=== PATIENT | male | born 1945 | race Caucasian/White ===

== ENCOUNTER 2020-10-17 06:57 | Outpatient (CLI) | payer MEDICARE ==
[2020-10-17 14:50] LABS: Bilirubin Neg (Negative); Blood, Urine 10 (Negative); Clarity Clear (Clear); Glucose, Urine (Dipstick) Normal (Negative); Ketone, Urine Negative (Negative); Leukocyte 25 (Negative); Nitrite Negative (Negative); Protein, Urine (Dipstick) 30 mg/dl (Neg-Trace); Urobilinogen Normal mg/dL (Less than 2)
[2020-10-17 15:04] LABS: Anion Gap 15 mmol/L (10-20); BUN (Urea Nitrogen) 20 mg/dL (8.4-25.7); Calc. Creatinine Clearance 0 mL/min (70-130); Calcium 9.6 mg/dL (7.8-10.44); Carbon Dioxide 24 mmol/L (23-31); Chloride 105 mmol/L (98-107); Glucose 105 mg/dL (83-110); Potassium 3.9 mmol/L (3.5-5.1); Sodium 140 mmol/L (136-145)
[2020-10-17 15:07] LABS: Hemoglobin 12.5 g/dL (14.0-18.0); Mean Corpuscular Volume 88.2 fl (80.0-100.0); Mean Platelet Volume 10.3 fl (7.4-10.4); Platelet Count 312 10x3/uL (130-400); RBC Distribution Width 12.9 % (11.5-14.5); Red Blood Cell (RBC) Count 4.17 10x6/uL (4.40-5.80); White Blood Cell (WBC) Count 4.1 10x3/uL (4.5-11.0)
[2020-10-17 15:36] LABS: PTT 56.4 sec (22.0-33.0); Prothrombin Time 41.7 sec (9.5-12.1)
[2020-10-17 15:48] LABS: INR-International Normal Ratio 4.3
[2020-10-17 16:49] LABS: RBC/HPF 0-3 HPF (0-3); WBC/HPF 0-3 HPF (0-3)
[2020-10-17 16:50] LABS: Bacteria/HPF Rare-Few HPF (None Seen); Mucous/LPF Rare LPF (<2+); Squamous Epithelial 0-3 HPF (0-3)
[2020-10-18 06:31] LABS: SARS-CoV-2 MS2 Positive; SARS-CoV-2 N Gene Negative; SARS-CoV-2 S Gene Negative; SARS-CoV-2 by NAA Not Detected (NotDetected); SARS-CoV-2 orf1ab Negative
== END 2020-10-17 06:58 | disposition home or self-care (01) ==
LOC: LABBT 06:57
PROVIDERS: ATTEND Urology
DX: Z01.818 Encounter for other preprocedural examination (principal); C67.9 Malignant neoplasm of bladder, unspecified; N50.3 Cyst of epididymis; Z20.828 Contact with and (suspected) exposure to other viral communicable diseases
CPT/HCPCS: 80048; 81001; 85027; 85610; 85730; 87086; 93005; U0003; 87635; 93010

== ENCOUNTER 2020-11-14 07:34 | Outpatient (CLI) | payer MEDICARE ==
[2020-11-14 12:52] LABS: Bilirubin Neg (Negative); Blood, Urine 150 (Negative); Clarity Clear (Clear); Glucose, Urine (Dipstick) Normal (Negative); Ketone, Urine Negative (Negative); Leukocyte 25 (Negative); Nitrite Negative (Negative); Protein, Urine (Dipstick) 30 mg/dl (Neg-Trace); Urobilinogen Normal mg/dL (Less than 2)
[2020-11-14 12:57] LABS: #Basophils 0.1 10x3/uL (0.0-0.2); #Eosinphils 0.2 10x3/uL (0.0-0.5); #Monocytes 0.6 10x3/uL (0.0-1.1); #Neutrophils 2.7 10x3/uL (1.5-8.4); %Basophils 1.1 % (0.0-2.0); %Lymphocytes 18.9 % (18.0-47.0); %Monocytes 13.2 % (0.0-10.0); %Neutrophils 61.6 % (40.0-75.0); Hemoglobin 10.9 g/dL (14.0-18.0); Mean Corpuscular Hemoglobin 29.1 PG (27.0-33.0); Mean Platelet Volume 10.3 fl (7.4-10.4); Platelet Count 309 10x3/uL (130-400); RBC Distribution Width 12.2 % (11.5-14.5); Red Blood Cell (RBC) Count 3.75 10x6/uL (4.40-5.80); White Blood Cell (WBC) Count 4.4 10x3/uL (4.5-11.0)
[2020-11-14 12:59] LABS: Anion Gap 17 mmol/L (10-20); BUN (Urea Nitrogen) 24 mg/dL (8.4-25.7); Calc. Creatinine Clearance 0 mL/min (70-130); Calcium 9.2 mg/dL (7.8-10.44); Carbon Dioxide 21 mmol/L (23-31); Chloride 104 mmol/L (98-107); Glucose 92 mg/dL (83-110); Potassium 4.2 mmol/L (3.5-5.1); Sodium 138 mmol/L (136-145)
[2020-11-14 13:14] LABS: Bacteria/HPF None Seen HPF (None Seen); RBC/HPF 0-3 HPF (0-3); Squamous Epithelial 0-3 HPF (0-3); WBC/HPF 0-3 HPF (0-3)
[2020-11-14 13:27] LABS: INR-International Normal Ratio 2.8; PTT 51.2 sec (22.0-33.0); Prothrombin Time 27.8 sec (9.5-12.1)
[2020-11-14 18:06] LABS: SARS-CoV-2 MS2 Positive; SARS-CoV-2 N Gene Negative; SARS-CoV-2 S Gene Negative; SARS-CoV-2 by NAA Not Detected (NotDetected); SARS-CoV-2 orf1ab Negative
== END 2020-11-14 07:35 | disposition home or self-care (01) ==
LOC: LABBT 07:34
PROVIDERS: ATTEND Urology
DX: Z01.818 Encounter for other preprocedural examination (principal); C67.9 Malignant neoplasm of bladder, unspecified; N50.3 Cyst of epididymis; Z20.822 Contact with and (suspected) exposure to COVID-19
CPT/HCPCS: 80048; 81001; 85025; 85610; 85730; 87086; 93005; U0003; 87635; 93010

== ENCOUNTER 2020-11-17 05:51 | Day surgery (SDC) | payer MEDICARE ==
[2020-11-16 11:15] VITALS: BMI 21.9
[2020-11-17 06:42] LABS: INR-International Normal Ratio 2.3; Prothrombin Time 25.8 sec (12.0-14.7)
[2020-11-17] MEDS ORDERED: Levofloxacin 500 mg/D5W 100 ml Premix Bag ONE (06:58)
[2020-11-17] MEDS ORDERED: B & O ONE (07:26)
[2020-11-17] MEDS ORDERED: Iothalamate Meglumine 60% 50 ML VIAL FS ONE (07:26)
[2020-11-17] MEDS ORDERED: Fentanyl 100 MCG/2 ML VIAL ONE (07:39)
[2020-11-17] MEDS ORDERED: Ondansetron PF 4 MG/2 ML Vial ONE ×2 (07:41→11:56)
[2020-11-17] MEDS ORDERED: Dexamethasone 4 mg/ml Vial ONE (07:41)
--- NOTE | 2020-11-17 09:21 | OP ---
DATE OF PROCEDURE: 11/17/2020 SERVICE: Urology. PREOPERATIVE DIAGNOSIS: History of bladder cancer with abnormal FISH cytology. POSTOPERATIVE DIAGNOSIS: History of bladder cancer with abnormal fish cytology. PROCEDURE PERFORMED: Cystoscopy, bladder biopsy, and fulguration of area between 2 to 5 cm. INDICATION FOR PROCEDURE: Mr. Iglesias is a 75-year-old white male with history of high-grade urothelial carcinoma. He was undergoing routine surveillance, was noted to have red patches in the bladder. At that time, it was not entirely sure if these red areas were consistent with malignancy, so a FISH cytology was obtained and this came back abnormal and concerning for cancer. Therefore, he is now being brought to the operating room for biopsy of these red areas. Risks and benefits of the surgery have been discussed and he has agreed to proceed forward. Of note, the patient is taking Coumadin and Plavix. He was okay to stop his Plavix, but was recommended to do a Lovenox bridge which the patient refused. As such, we are continuing with his bladder biopsies while the patient is still on Coumadin. DESCRIPTION OF PROCEDURE: After identification of armband and verification of consent, patient was brought back to the operating room, where he underwent general anesthesia with LMA. He was placed in the dorsal lithotomy position and prepped and draped in usual sterile fashion. After appropriate time-out, a lubricated 22-Malagasy rigid cystoscope was introduced per urethra into the bladder. Full cystoscopy was performed, which demonstrated a 2 primary red patches; one directly posterior and a larger one to the right posterior bladder. The larger area measured approximately 3 cm and the smaller area probably 1 cm. Both ureters were in orthotopic location. There were no obvious papillary tumors. Remainder of the bladder appeared normal. Prior biopsy sites were noted and found to be well healed. Cold cup biopsy forceps were brought in and a posterior bladder biopsy was taken from the smaller area and 3 biopsies were taken from the larger red area. After the biopsies were sent off, the Bugbee electrode was brought in and cautery was performed of the lesions until they were completely obliterated using the coag function. Upon completion, there was excellent hemostasis. Any bladder clot was irrigated out and the bladder was cycled to fill and decompress under direct vision to ensure there was no ongoing bleeding and none was encountered. Satisfied that the patient's bleeding should be minimal, the cystoscope was removed after the bladder was emptied. A B and O suppository were placed in the patient's rectum. He was taken out of positioning, awakened, taken to PACU for recovery in stable condition. COMPLICATIONS: None. ESTIMATED BLOOD LOSS: Minimal. RETAINED TUBES AND DRAINS: None. SPECIMENS: Bladder biopsies x4; one from posterior and 3 from the posterior right. DISPOSITION: Patient will be discharged home and follow up with me in approximately 1 to 2 weeks for a postop check and biopsy results. Job ID: [id number]
[2020-11-17] MEDS ORDERED: Dexamethasone 20 MG/5 ML VIAL ONE (11:56)
[2020-11-17] MEDS ORDERED: Lidocaine 1% PF 5 ML VIAL ONE (11:56)
[2020-11-17] MEDS ORDERED: PROPOFOL 200 MG/20 ML VIAL ONE (11:56)
== END 2020-11-17 10:30 | disposition home or self-care (01) ==
LOC: SDC 05:51
PROVIDERS: ATTEND Urology
PROC: 0TBB8ZZ Excision of Bladder, Via Natural or Artificial Opening Endoscopic (ICD-10-PCS; principal; 2020-11-17)
PROC: 0TBB8ZX Excision of Bladder, Via Natural or Artificial Opening Endoscopic, Diagnostic (ICD-10-PCS; 2020-11-17)
DX: C67.4 Malignant neoplasm of posterior wall of bladder (principal); N30.20 Other chronic cystitis without hematuria; I11.0 Hypertensive heart disease with heart failure; I50.9 Heart failure, unspecified; I25.10 Atherosclerotic heart disease of native coronary artery without angina pectoris; E78.5 Hyperlipidemia, unspecified; I65.29 Occlusion and stenosis of unspecified carotid artery; Z79.01 Long term (current) use of anticoagulants; Z79.02 Long term (current) use of antithrombotics/antiplatelets; Z79.899 Other long term (current) drug therapy; Z88.5 Allergy status to narcotic agent; Z95.0 Presence of cardiac pacemaker; Z95.1 Presence of aortocoronary bypass graft
CPT/HCPCS: 36415; 85610; 85730; 88305; J1100; J1956; J2405; J2704; J3010

== ENCOUNTER 2021-09-02 23:47 | Inpatient (IN) | payer MEDICARE ==
[2021-09-03] MEDS ORDERED: Ondansetron PF 4 MG/2 ML Vial IVP PRN (01:16)
[2021-09-03] MEDS ORDERED: Acetaminophen 325 MG TAB PO PRN (01:16)
[2021-09-03] MEDS ORDERED: Morphine 4 MG/ML VIAL SLOW IVP SCH (06:15)
[2021-09-03] MEDS: hydrALAZINE 20 MG/ML VIAL SLOW IVP PRN ×3 (06:38→21:25)
[2021-09-03 08:00] LABS: Hemoglobin 6.9 g/dL (14.0-18.0); Platelet Count 295 thou/uL (130-400)
[2021-09-03 10:46] LABS: #Eosinphils 0.1 thou/uL (0.0-0.7); #Lymphocytes 1.2 thou/uL (1.20-3.40); #Monocytes 0.8 thou/uL (0.11-0.59); #Neutrophils 3.3 thou/uL (1.40-6.50); %Basophils 0.6 % (0.0-1.0); %Eosinophils 1.8 % (0.0-10.0); %Lymphocytes 22.1 % (21.0-51.0); %Monocytes 14.7 % (0.0-10.0); %Neutrophils 60.8 % (42.0-75.0); Mean Corpuscular HGB CONC 34.6 g/dL (32.0-36.0); Mean Corpuscular Hemoglobin 29.2 pg (27.0-31.0); Mean Corpuscular Volume 84.4 fL (78.0-98.0); Mean Platelet Volume 7.5 fL (7.4-10.4); Platelet Count 292 thou/uL (130-400); White Blood Cell (WBC) Count 5.5 thou/uL (4.8-10.8)
[2021-09-03 10:58] LABS: Prothrombin Time 47.3 sec (12.0-14.7)
[2021-09-03 11:00] LABS: PTT 53.8 sec (22.9-36.1)
[2021-09-03 11:24] LABS: ALT (SGPT) 8 U/L (8-55); AST (SGOT) 18 U/L (5-34); Albumin 3.2 g/dL (3.4-4.8); Alkaline Phosphatase 48 U/L (40-110); Anion Gap 12 mmol/L (10-20); BUN (Urea Nitrogen) 40 mg/dL (8.4-25.7); Bilirubin, Total 0.4 mg/dL (0.2-1.2); Calc. Creatinine Clearance 32 mL/min (70-130); Calcium 8.7 mg/dL (7.8-10.44); Carbon Dioxide 22 mmol/L (23-31); Chloride 114 mmol/L (98-107); Globulin 2.1 g/dL (2.4-3.5); Glucose 97 mg/dL (83-110); Potassium 3.6 mmol/L (3.5-5.1); Protein, Total 5.3 g/dL (5.8-8.1); Sodium 144 mmol/L (136-145)
[2021-09-03] MEDS ORDERED: Phytonadione 10 MG/ML AMP SLOW IVP SCH (11:45)
[2021-09-03 16:51] LABS: SARS-CoV-2 PCR by NAA DETECTED (NotDetected)
[2021-09-03 17:24] LABS: Hemoglobin 8.5 g/dL (14.0-18.0)
[2021-09-03] MEDS: Pantoprazole 80 MG in Sodium Chloride 0.9% 100 ML IVPB SCH (21:25)
[2021-09-04 07:31] LABS: INR-International Normal Ratio 1.3; Prothrombin Time 16.5 sec (12.0-14.7)
[2021-09-04 07:32] LABS: ALT (SGPT) 7 U/L (8-55); AST (SGOT) 20 U/L (5-34); Alkaline Phosphatase 42 U/L (40-110); Anion Gap 11 mmol/L (10-20); BUN (Urea Nitrogen) 34 mg/dL (8.4-25.7); Bilirubin, Total 0.4 mg/dL (0.2-1.2); Calc. Creatinine Clearance 36 mL/min (70-130); Calcium 8.3 mg/dL (7.8-10.44); Carbon Dioxide 19 mmol/L (23-31); Chloride 114 mmol/L (98-107); Globulin 2.1 g/dL (2.4-3.5); Glucose 95 mg/dL (83-110); PTT 27.2 sec (22.9-36.1); Potassium 3.5 mmol/L (3.5-5.1); Protein, Total 5.1 g/dL (5.8-8.1); Sodium 140 mmol/L (136-145)
[2021-09-04 08:42] LABS: Hemoglobin 6.5 g/dL (14.0-18.0); Mean Corpuscular HGB CONC 34.5 g/dL (32.0-36.0); Mean Corpuscular Hemoglobin 29.2 pg (27.0-31.0); Mean Corpuscular Volume 84.8 fL (78.0-98.0); Mean Platelet Volume 7.6 fL (7.4-10.4); Platelet Count 285 thou/uL (130-400); RBC Distribution Width 14.1 % (11.5-14.5); Red Blood Cell (RBC) Count 2.23 mill/uL (4.70-6.10); White Blood Cell (WBC) Count 6.1 thou/uL (4.8-10.8)
[2021-09-04] MEDS: hydrALAZINE 20 MG/ML VIAL SLOW IVP PRN ×2 (08:54→16:16)
[2021-09-04] MEDS: Pantoprazole 80 MG in Sodium Chloride 0.9% 100 ML IVPB SCH (10:14)
[2021-09-04] MEDS ORDERED: GoLYTELY 4,000 ml Bottle PO SCH (10:30)
[2021-09-04] MEDS ORDERED: Pantoprazole 80 MG, Admixture Fee 1 EACH in Sodium Chloride 0.9% 100 ML IVPB SCH (11:15)
[2021-09-04 11:24] LABS: Band 1 % (5-11); Eosinophils 2 % (0-10); Hypochromia SLIGHT = 6-15 cells (100X) (0-5/hpf); Lymphocytes 29 % (21-51); MDiff Complete? YES; Monocytes 12 % (0-10); Neutrophil 56 % (42-75); Ovalocytes SLIGHT = 2-5 cells (100X) (0-1/hpf); Platelet Morphology Comment Appears Adequate; Polychromasia MODERATE = 3-4 cells (100X) (0-2/hpf)
[2021-09-04 12:20] LABS: Hemoglobin 6.5 g/dL (14.0-18.0)
[2021-09-04] MEDS ORDERED: Furosemide 20 MG/2 ML VIAL SLOW IVP SCH (16:30)
[2021-09-04] MEDS ORDERED: NIFEdipine XL 90 MG TAB PO SCH (16:30)
[2021-09-04] MEDS: Labetalol 100 MG TAB PO SCH (23:32)
[2021-09-05 05:36] LABS: #Eosinphils 0.2 thou/uL (0.0-0.7); #Lymphocytes 0.9 thou/uL (1.20-3.40); #Monocytes 0.6 thou/uL (0.11-0.59); #Neutrophils 3.6 thou/uL (1.40-6.50); %Basophils 0.1 % (0.0-1.0); %Eosinophils 3.3 % (0.0-10.0); %Lymphocytes 16.8 % (21.0-51.0); %Monocytes 10.9 % (0.0-10.0); %Neutrophils 68.9 % (42.0-75.0); Hemoglobin 6.9 g/dL (14.0-18.0); Mean Corpuscular HGB CONC 33.7 g/dL (32.0-36.0); Mean Corpuscular Hemoglobin 29.6 pg (27.0-31.0); Mean Corpuscular Volume 87.9 fL (78.0-98.0); Mean Platelet Volume 7.5 fL (7.4-10.4); Platelet Count 268 thou/uL (130-400); RBC Distribution Width 14.3 % (11.5-14.5); Red Blood Cell (RBC) Count 2.34 mill/uL (4.70-6.10); White Blood Cell (WBC) Count 5.2 thou/uL (4.8-10.8)
[2021-09-05 05:54] LABS: INR-International Normal Ratio 1.2; Prothrombin Time 15.6 sec (12.0-14.7)
[2021-09-05] MEDS: Labetalol 100 MG TAB PO SCH ×2 (08:31→21:23)
[2021-09-05] MEDS: NIFEdipine XL 90 MG TAB PO SCH (08:31)
[2021-09-05] MEDS ORDERED: Furosemide 40 MG/4 ML VIAL SLOW IVP SCH (09:45)
[2021-09-05] MEDS ORDERED: Lidocaine 1% PF 5 ML VIAL ONE (11:39)
[2021-09-05] MEDS ORDERED: Succinylcholine 200 MG/10 ml SYRINGE FS ONE (11:39)
[2021-09-05] MEDS ORDERED: PROPOFOL 200 MG/20 ML VIAL ONE (11:39)
[2021-09-05] MEDS ORDERED: Dexamethasone 20 MG/5 ML VIAL ONE (11:39)
[2021-09-05] MEDS ORDERED: Ondansetron PF 4 MG/2 ML Vial ONE (11:39)
[2021-09-05] MEDS ORDERED: Promethazine HCl 25 MG/ML VIAL IVPB PRN (12:31)
[2021-09-05] MEDS ORDERED: HYDROmorphone 2 MG/ML VIAL SLOW IVP PRN (12:31)
[2021-09-05] MEDS ORDERED: Promethazine HCl 25 MG/ML VIAL IM PRN (12:31)
[2021-09-05] MEDS ORDERED: Ondansetron HCl/PF 4 MG/2 ML Vial IVP PRN (12:31)
[2021-09-05] MEDS: hydrALAZINE 20 MG/ML VIAL SLOW IVP PRN (15:10)
[2021-09-05 19:38] LABS: Hemoglobin 9.1 g/dL (14.0-18.0)
[2021-09-06 05:04] LABS: Anion Gap 11 mmol/L (10-20); BUN (Urea Nitrogen) 28 mg/dL (8.4-25.7); Calc. Creatinine Clearance 31 mL/min (70-130); Calcium 8.3 mg/dL (7.8-10.44); Carbon Dioxide 24 mmol/L (23-31); Chloride 109 mmol/L (98-107); Glucose 108 mg/dL (83-110); Sodium 140 mmol/L (136-145)
[2021-09-06 05:35] LABS: Hemoglobin 7.9 g/dL (14.0-18.0); Lymphocytes 15 % (21-51); MDiff Complete? YES; Mean Corpuscular HGB CONC 34.2 g/dL (32.0-36.0); Mean Corpuscular Hemoglobin 30.4 pg (27.0-31.0); Mean Corpuscular Volume 88.8 fL (78.0-98.0); Mean Platelet Volume 7.5 fL (7.4-10.4); Monocytes 13 % (0-10); Neutrophil 72 % (42-75); Platelet Count 326 thou/uL (130-400); Platelet Morphology Comment Appears Adequate; RBC Distribution Width 14.6 % (11.5-14.5); RBC Morphology Normal; White Blood Cell (WBC) Count 5.5 thou/uL (4.8-10.8)
[2021-09-06] MEDS: NIFEdipine XL 90 MG TAB PO SCH (08:30)
[2021-09-06] MEDS: Labetalol 100 MG TAB PO SCH ×2 (09:41→20:43)
[2021-09-06 12:10] LABS: Hemoglobin 7.5 g/dL (14.0-18.0); Platelet Count 304 thou/uL (130-400)
[2021-09-06 12:26] LABS: Iron 20 ug/dL (65-175); Iron Binding Capacity, Total 259 mcg/dL (261-462)
[2021-09-06 12:42] LABS: Ferritin 36.2 ng/mL (22-322)
[2021-09-07 08:50] LABS: #Basophils 0.1 thou/uL (0.0-0.2); #Eosinphils 0.4 thou/uL (0.0-0.7); #Lymphocytes 1.2 thou/uL (1.20-3.40); #Monocytes 0.6 thou/uL (0.11-0.59); #Neutrophils 2.7 thou/uL (1.40-6.50); %Basophils 1.4 % (0.0-1.0); %Eosinophils 7.8 % (0.0-10.0); %Lymphocytes 24.4 % (21.0-51.0); %Monocytes 12.3 % (0.0-10.0); %Neutrophils 54.2 % (42.0-75.0); Hemoglobin 7.8 g/dL (14.0-18.0); Mean Corpuscular Hemoglobin 30.6 pg (27.0-31.0); Mean Platelet Volume 7.3 fL (7.4-10.4); Platelet Count 339 thou/uL (130-400); RBC Distribution Width 14.6 % (11.5-14.5); Red Blood Cell (RBC) Count 2.56 mill/uL (4.70-6.10); White Blood Cell (WBC) Count 5.1 thou/uL (4.8-10.8)
[2021-09-07] MEDS: NIFEdipine XL 90 MG TAB PO SCH (09:53)
[2021-09-07] MEDS: Labetalol 100 MG TAB PO SCH ×2 (09:58→21:01)
[2021-09-07] MEDS: Enoxaparin Sodium 60 MG/0.6 ML SYRINGE SC SCH (21:22)
[2021-09-08 04:55] LABS: INR-International Normal Ratio 1.1; PTT 36.4 sec (22.9-36.1); Prothrombin Time 14.6 sec (12.0-14.7)
[2021-09-08 05:05] LABS: Hemoglobin 8.2 g/dL (14.0-18.0); Mean Corpuscular HGB CONC 33.3 g/dL (32.0-36.0); Mean Corpuscular Hemoglobin 30.4 pg (27.0-31.0); Mean Corpuscular Volume 91.3 fL (78.0-98.0); Mean Platelet Volume 7.7 fL (7.4-10.4); Platelet Count 348 thou/uL (130-400); RBC Distribution Width 14.4 % (11.5-14.5); Red Blood Cell (RBC) Count 2.69 mill/uL (4.70-6.10); White Blood Cell (WBC) Count 4.5 thou/uL (4.8-10.8)
[2021-09-08 06:06] LABS: Band 2 % (5-11); Eosinophils 9 % (0-10); Lymphocytes 23 % (21-51); MDiff Complete? YES; Monocytes 11 % (0-10); Neutrophil 55 % (42-75)
[2021-09-08] MEDS: NIFEdipine XL 90 MG TAB PO SCH (08:33)
[2021-09-08] MEDS: Enoxaparin Sodium 60 MG/0.6 ML SYRINGE SC SCH ×2 (08:33→20:45)
[2021-09-08] MEDS: Labetalol 100 MG TAB PO SCH ×2 (08:34→20:44)
[2021-09-08] MEDS: Warfarin Sodium 5 MG TAB PO SCH (17:04)
[2021-09-09 05:36] LABS: INR-International Normal Ratio 1.1; Prothrombin Time 14.2 sec (12.0-14.7)
[2021-09-09 05:37] LABS: PTT 33.2 sec (22.9-36.1)
[2021-09-09 05:46] LABS: Hemoglobin 7.9 g/dL (14.0-18.0); Mean Corpuscular HGB CONC 32.9 g/dL (32.0-36.0); Mean Corpuscular Hemoglobin 30.1 pg (27.0-31.0); Mean Corpuscular Volume 91.6 fL (78.0-98.0); Mean Platelet Volume 8.2 fL (7.4-10.4); Platelet Count 355 thou/uL (130-400); RBC Distribution Width 14.5 % (11.5-14.5); Red Blood Cell (RBC) Count 2.62 mill/uL (4.70-6.10); White Blood Cell (WBC) Count 4.2 thou/uL (4.8-10.8)
[2021-09-09 06:42] LABS: Band 1 % (5-11); Eosinophils 8 % (0-10); Lymphocytes 31 % (21-51); MDiff Complete? YES; Monocytes 4 % (0-10); Neutrophil 56 % (42-75)
[2021-09-09] MEDS: Enoxaparin Sodium 60 MG/0.6 ML SYRINGE SC SCH ×2 (07:52→20:48)
[2021-09-09] MEDS: Labetalol 100 MG TAB PO SCH ×2 (08:00→20:48)
[2021-09-09] MEDS: NIFEdipine XL 90 MG TAB PO SCH (08:01)
[2021-09-09] MEDS ORDERED: Warfarin Sodium 2.5 MG TAB PO SCH (17:00)
[2021-09-09] MEDS: Warfarin Sodium 5 MG TAB PO SCH (17:15)
[2021-09-09] MEDS ORDERED: Calcium Carbonate 500 MG ChewTAB PO SCH (21:00)
[2021-09-10] MEDS: hydrALAZINE 20 MG/ML VIAL SLOW IVP PRN (03:55)
[2021-09-10 05:14] LABS: Hemoglobin 8.3 g/dL (14.0-18.0); INR-International Normal Ratio 1.2; Mean Corpuscular HGB CONC 32.2 g/dL (32.0-36.0); Mean Corpuscular Hemoglobin 29.4 pg (27.0-31.0); Mean Corpuscular Volume 91.5 fL (78.0-98.0); Mean Platelet Volume 7.4 fL (7.4-10.4); Platelet Count 350 thou/uL (130-400); Prothrombin Time 15.4 sec (12.0-14.7); RBC Distribution Width 14.1 % (11.5-14.5); Red Blood Cell (RBC) Count 2.81 mill/uL (4.70-6.10); White Blood Cell (WBC) Count 4.8 thou/uL (4.8-10.8)
[2021-09-10 05:15] LABS: PTT 38.9 sec (22.9-36.1)
[2021-09-10 05:25] LABS: Anion Gap 11 mmol/L (10-20); BUN (Urea Nitrogen) 18 mg/dL (8.4-25.7); Calc. Creatinine Clearance 34 mL/min (70-130); Calcium 9.3 mg/dL (7.8-10.44); Carbon Dioxide 24 mmol/L (23-31); Chloride 108 mmol/L (98-107); Glucose 93 mg/dL (83-110); Potassium 5.2 mmol/L (3.5-5.1); Sodium 138 mmol/L (136-145)
[2021-09-10 05:58] LABS: Eosinophils 4 % (0-10); Lymphocytes 24 % (21-51); MDiff Complete? YES; Monocytes 13 % (0-10); Neutrophil 59 % (42-75)
[2021-09-10] MEDS: Clopidogrel Bisulfate 75 MG TAB PO SCH (11:43)
[2021-09-10] MEDS: NIFEdipine XL 90 MG TAB PO SCH (11:44)
[2021-09-10] MEDS: Labetalol 100 MG TAB PO SCH ×2 (11:44→20:49)
[2021-09-10] MEDS: Enoxaparin Sodium 60 MG/0.6 ML SYRINGE SC SCH ×2 (11:45→20:49)
[2021-09-10] MEDS ORDERED: Warfarin Sodium 2.5 MG TAB PO SCH (17:00)
[2021-09-10] MEDS: Mag-Al Plus 1200 MG/1200 MG/120 MG/30 ML UDCUP PO PRN (18:39)
[2021-09-10] MEDS: Warfarin Sodium 5 MG TAB PO SCH (18:40)
[2021-09-11 04:57] LABS: Hemoglobin 8.2 g/dL (14.0-18.0); Mean Corpuscular HGB CONC 33.6 g/dL (32.0-36.0); Mean Corpuscular Hemoglobin 30.3 pg (27.0-31.0); Mean Corpuscular Volume 90.1 fL (78.0-98.0); Mean Platelet Volume 7.7 fL (7.4-10.4); Platelet Count 361 thou/uL (130-400); RBC Distribution Width 14.2 % (11.5-14.5); Red Blood Cell (RBC) Count 2.72 mill/uL (4.70-6.10); White Blood Cell (WBC) Count 5.2 thou/uL (4.8-10.8)
[2021-09-11 05:06] LABS: INR-International Normal Ratio 1.5; Prothrombin Time 17.9 sec (12.0-14.7)
[2021-09-11 05:07] LABS: PTT 51.7 sec (22.9-36.1)
[2021-09-11 05:14] LABS: Chloride 108 mmol/L (98-107); Potassium 4.7 mmol/L (3.5-5.1); Sodium 138 mmol/L (136-145)
[2021-09-11 05:23] LABS: BUN (Urea Nitrogen) 21 mg/dL (8.4-25.7); Calc. Creatinine Clearance 35 mL/min (70-130); Calcium 8.4 mg/dL (7.8-10.44); Carbon Dioxide 24 mmol/L (23-31); Glucose 87 mg/dL (83-110)
[2021-09-11 05:25] LABS: Anion Gap 11 mmol/L (10-20)
[2021-09-11 06:05] LABS: Band 4 % (5-11); Eosinophils 1 % (0-10); Lymphocytes 42 % (21-51); MDiff Complete? YES; Neutrophil 53 % (42-75)
[2021-09-11] MEDS: Enoxaparin Sodium 60 MG/0.6 ML SYRINGE SC SCH ×2 (09:36→20:31)
[2021-09-11] MEDS: Labetalol 100 MG TAB PO SCH ×2 (09:36→20:31)
[2021-09-11] MEDS: NIFEdipine XL 90 MG TAB PO SCH (09:37)
[2021-09-11] MEDS: Clopidogrel Bisulfate 75 MG TAB PO SCH (09:37)
[2021-09-11] MEDS: Warfarin Sodium 5 MG TAB PO SCH (16:17)
[2021-09-11] MEDS ORDERED: Warfarin Sodium 2.5 MG TAB PO SCH (17:00)
[2021-09-11] MEDS: Mag-Al Plus 1200 MG/1200 MG/120 MG/30 ML UDCUP PO PRN (17:05)
[2021-09-12 05:08] LABS: INR-International Normal Ratio 1.9; Prothrombin Time 22.2 sec (12.0-14.7)
[2021-09-12 05:09] LABS: PTT 56.4 sec (22.9-36.1)
[2021-09-12 05:13] LABS: Hemoglobin 7.9 g/dL (14.0-18.0); Mean Corpuscular HGB CONC 32.7 g/dL (32.0-36.0); Mean Corpuscular Hemoglobin 29.7 pg (27.0-31.0); Mean Corpuscular Volume 90.8 fL (78.0-98.0); Mean Platelet Volume 7.3 fL (7.4-10.4); Platelet Count 311 thou/uL (130-400); RBC Distribution Width 14.1 % (11.5-14.5); Red Blood Cell (RBC) Count 2.66 mill/uL (4.70-6.10); White Blood Cell (WBC) Count 5.1 thou/uL (4.8-10.8)
[2021-09-12 05:40] LABS: Eosinophils 5 % (0-10); Lymphocytes 23 % (21-51); MDiff Complete? YES; Monocytes 16 % (0-10); Neutrophil 56 % (42-75)
[2021-09-12] MEDS: Enoxaparin Sodium 60 MG/0.6 ML SYRINGE SC SCH ×2 (09:32→20:07)
[2021-09-12] MEDS: Labetalol 100 MG TAB PO SCH ×2 (09:32→20:07)
[2021-09-12] MEDS: NIFEdipine XL 90 MG TAB PO SCH (09:32)
[2021-09-12] MEDS: Clopidogrel Bisulfate 75 MG TAB PO SCH (09:32)
[2021-09-12] MEDS: Warfarin Sodium 5 MG TAB PO SCH (17:00)
[2021-09-13 05:44] LABS: Hemoglobin 7.8 g/dL (14.0-18.0); Mean Corpuscular HGB CONC 33.4 g/dL (32.0-36.0); Mean Corpuscular Hemoglobin 30.3 pg (27.0-31.0); Mean Corpuscular Volume 90.7 fL (78.0-98.0); Mean Platelet Volume 7.5 fL (7.4-10.4); Platelet Count 273 thou/uL (130-400); RBC Distribution Width 14.2 % (11.5-14.5); Red Blood Cell (RBC) Count 2.57 mill/uL (4.70-6.10); White Blood Cell (WBC) Count 4.9 thou/uL (4.8-10.8)
[2021-09-13 05:48] LABS: Anion Gap 13 mmol/L (10-20); BUN (Urea Nitrogen) 24 mg/dL (8.4-25.7); Calc. Creatinine Clearance 31 mL/min (70-130); Calcium 8.5 mg/dL (7.8-10.44); Carbon Dioxide 22 mmol/L (23-31); Chloride 109 mmol/L (98-107); Glucose 98 mg/dL (83-110); INR-International Normal Ratio 2.2; Potassium 4.5 mmol/L (3.5-5.1); Prothrombin Time 24.6 sec (12.0-14.7); Sodium 139 mmol/L (136-145)
[2021-09-13 06:37] LABS: Band 3 % (5-11); Eosinophils 10 % (0-10); Lymphocytes 39 % (21-51); MDiff Complete? YES; Monocytes 3 % (0-10); Neutrophil 45 % (42-75)
[2021-09-13 07:22] VITALS: TEMP 98.1
[2021-09-13] MEDS: NIFEdipine XL 90 MG TAB PO SCH (09:38)
[2021-09-13] MEDS: Enoxaparin Sodium 60 MG/0.6 ML SYRINGE SC SCH (09:38)
[2021-09-13] MEDS: Labetalol 100 MG TAB PO SCH (09:38)
[2021-09-13] MEDS: Clopidogrel Bisulfate 75 MG TAB PO SCH (09:38)
[2021-09-13 11:35] VITALS: BP 122/59
[2021-09-13] MEDS ORDERED: Warfarin Sodium 5 MG TAB PO SCH (15:00)
[2021-09-13] MEDS ORDERED: Ferrous Sulfate 325 MG TAB PO SCH (17:00)
== END 2021-09-13 16:00 | disposition home or self-care (01) | DRG 377 ==
LOC: ERS 23:47 → 2NO 09-03 00:46
PROVIDERS: ADMIT Internal Medicine; ATTEND Internal Medicine
PROC: 30233N1 Transfusion of Nonautologous Red Blood Cells into Peripheral Vein, Percutaneous Approach (ICD-10-PCS; 2021-09-03)
PROC: 0DB98ZX Excision of Duodenum, Via Natural or Artificial Opening Endoscopic, Diagnostic (ICD-10-PCS; principal; 2021-09-05)
PROC: 0DBN8ZZ Excision of Sigmoid Colon, Via Natural or Artificial Opening Endoscopic (ICD-10-PCS; 2021-09-05)
PROC: 30233R1 Transfusion of Nonautologous Platelets into Peripheral Vein, Percutaneous Approach (ICD-10-PCS; 2021-09-05)
PROC: 3E0333Z Introduction of Anti-inflammatory into Peripheral Vein, Percutaneous Approach (ICD-10-PCS; 2021-09-05)
DX: K92.2 Gastrointestinal hemorrhage, unspecified (principal); U07.1 COVID-19; D62 Acute posthemorrhagic anemia; I13.0 Hypertensive heart and chronic kidney disease with heart failure and stage 1 through stage 4 chronic kidney disease, or unspecified chronic kidney disease; R79.1 Abnormal coagulation profile; N18.30 Chronic kidney disease, stage 3 unspecified; I50.9 Heart failure, unspecified; E78.5 Hyperlipidemia, unspecified; I73.9 Peripheral vascular disease, unspecified; D63.1 Anemia in chronic kidney disease; D72.819 Decreased white blood cell count, unspecified; I25.10 Atherosclerotic heart disease of native coronary artery without angina pectoris; Z88.5 Allergy status to narcotic agent; Z87.891 Personal history of nicotine dependence; Z85.51 Personal history of malignant neoplasm of bladder; Z95.4 Presence of other heart-valve replacement; Z79.02 Long term (current) use of antithrombotics/antiplatelets; Z79.899 Other long term (current) drug therapy
CPT/HCPCS: 36415; 36430; 80048; 80053; 82607; 82728; 82746; 83540; 83550; 85025; 85610; 85730; 86850; 86900; 86901; 88305; 93306; 99285; C9113; J0360; J1100; J1650; J1940; J2405; J2704; J3430; J3490; P9016; P9035; U0003; U0005

== ENCOUNTER 2021-10-15 21:49 | Inpatient (IN) | payer MEDICARE ==
[2021-10-15 22:50] LABS: Bacteria/HPF None Seen HPF (None Seen); Bilirubin Negative (Negative); Blood, Urine 1+ (Negative); Clarity Clear (Clear); Glucose, Urine (Dipstick) Normal (Negative); Ketone, Urine Negative (Negative); Leukocyte 25 Leu/uL (Negative); Mucous/LPF Rare LPF (<2+); Nitrite Negative (Negative); Protein, Urine (Dipstick) Negative (Neg-Trace); Renal Epithelial 0-3 HPF (None Seen); Specific Gravity, Urine 1.013 (1.002-1.036); Squamous Epithelial 0-3 HPF (0-3); Urobilinogen Normal mg/dL (Less than 2); WBC/HPF 0-3 HPF (0-3)
[2021-10-15] MEDS ORDERED: methylPREDNISolone Sod Succ/PF 125 MG/2 ML VIAL ONE (23:19)
[2021-10-15 23:43] LABS: #Eosinphils 0.1 thou/uL (0.0-0.7); #Lymphocytes 1.1 thou/uL (1.20-3.40); #Monocytes 0.9 thou/uL (0.11-0.59); #Neutrophils 6.2 thou/uL (1.40-6.50); %Basophils 0.3 % (0.0-1.0); %Eosinophils 1.3 % (0.0-10.0); %Lymphocytes 13.1 % (21.0-51.0); %Monocytes 10.9 % (0.0-10.0); %Neutrophils 74.3 % (42.0-75.0); Hemoglobin 5.5 g/dL (14.0-18.0); Mean Corpuscular HGB CONC 32.6 g/dL (32.0-36.0); Mean Corpuscular Hemoglobin 29.9 pg (27.0-31.0); Mean Corpuscular Volume 91.6 fL (78.0-98.0); Mean Platelet Volume 7.4 fL (7.4-10.4); Platelet Count 275 thou/uL (130-400); RBC Distribution Width 16.9 % (11.5-14.5); Red Blood Cell (RBC) Count 1.83 mill/uL (4.70-6.10); White Blood Cell (WBC) Count 8.3 thou/uL (4.8-10.8)
[2021-10-16 00:12] LABS: ALT (SGPT) 8 U/L (8-55); AST (SGOT) 18 U/L (5-34); Albumin 3.7 g/dL (3.4-4.8); Alkaline Phosphatase 61 U/L (40-110); Anion Gap 17 mmol/L (10-20); BUN (Urea Nitrogen) 65 mg/dL (8.4-25.7); Bilirubin, Total 0.2 mg/dL (0.2-1.2); Calc. Creatinine Clearance 0 mL/min (70-130); Carbon Dioxide 17 mmol/L (23-31); Chloride 109 mmol/L (98-107); Globulin 2.3 g/dL (2.4-3.5); Glucose 111 mg/dL (83-110); Potassium 4.6 mmol/L (3.5-5.1); Sodium 138 mmol/L (136-145)
[2021-10-16 01:02] LABS: PTT 47.5 sec (22.9-36.1)
[2021-10-16 01:03] LABS: Prothrombin Time 49.7 sec (12.0-14.7)
[2021-10-16 01:05] LABS: Iron 43 ug/dL (65-175); Iron Binding Capacity, Total 318 mcg/dL (261-462)
[2021-10-16 01:34] LABS: INR-International Normal Ratio 5.3
[2021-10-16] MEDS ORDERED: Pantoprazole 40 MG VIAL ONE (02:34)
[2021-10-16] MEDS ORDERED: Pantoprazole 80 MG in Sodium Chloride 0.9% 100 ML IVPB SCH (02:45)
[2021-10-16] MEDS ORDERED: Ondansetron PF 4 MG/2 ML Vial IVP PRN (02:54)
[2021-10-16] MEDS ORDERED: HYDROcodone/Acetaminophen 5/325 mg Tablet PO PRN (02:54)
[2021-10-16 06:52] LABS: Creatinine, Urine 89.17 mg/dL (63-166); Protein, Urine Random Quant Less than 10 mg/dL (1-14); Sodium, Urine 34 mmol/L (Not Available); Urea Nitrogen, Random Urine 560 mg/dl
[2021-10-16 07:19] VITALS: BMI 20.7
[2021-10-16] MEDS ORDERED: Clopidogrel Bisulfate 75 MG TAB PO SCH (09:00)
[2021-10-16] MEDS ORDERED: Famotidine 20 MG TAB PO SCH (09:00)
[2021-10-16] MEDS ORDERED: Furosemide 40 MG TAB PO SCH (09:00)
[2021-10-16] MEDS ORDERED: Labetalol HCl 100 MG TAB PO SCH (09:00)
[2021-10-16] MEDS: NIFEdipine XL 90 MG TAB PO SCH (10:13)
[2021-10-16] MEDS: Ferrous Sulfate 325 MG TAB PO SCH ×3 (10:14→16:53)
[2021-10-16 11:21] LABS: Hemoglobin 7.7 g/dL (14.0-18.0); Mean Corpuscular HGB CONC 32.6 g/dL (32.0-36.0); Mean Corpuscular Hemoglobin 29.5 pg (27.0-31.0); Mean Corpuscular Volume 90.6 fL (78.0-98.0); Mean Platelet Volume 7.5 fL (7.4-10.4); Platelet Count 256 thou/uL (130-400); RBC Distribution Width 15.1 % (11.5-14.5); Red Blood Cell (RBC) Count 2.59 mill/uL (4.70-6.10); White Blood Cell (WBC) Count 5.3 thou/uL (4.8-10.8)
[2021-10-16 11:23] LABS: Prothrombin Time 52.2 sec (12.0-14.7)
[2021-10-16 11:30] LABS: INR-International Normal Ratio 5.6
[2021-10-16 11:38] LABS: ALT (SGPT) 9 U/L (8-55); AST (SGOT) 17 U/L (5-34); Albumin 3.6 g/dL (3.4-4.8); Alkaline Phosphatase 54 U/L (40-110); Anion Gap 14 mmol/L (10-20); BUN (Urea Nitrogen) 69 mg/dL (8.4-25.7); Bilirubin, Total 0.5 mg/dL (0.2-1.2); Calc. Creatinine Clearance 23 mL/min (70-130); Carbon Dioxide 18 mmol/L (23-31); Chloride 109 mmol/L (98-107); Globulin 2.6 g/dL (2.4-3.5); Glucose 177 mg/dL (83-110); Potassium 4.6 mmol/L (3.5-5.1); Protein, Total 6.2 g/dL (5.8-8.1); Sodium 136 mmol/L (136-145)
[2021-10-16 11:41] LABS: Band 3 % (5-11); Lymphocytes 16 % (21-51); MDiff Complete? YES; Neutrophil 81 % (42-75); Platelet Morphology Comment Appears Adequate; Polychromasia SLIGHT = 2-3 cells (100X) (0-2/hpf)
[2021-10-16] MEDS: Pantoprazole 80 MG, Admixture Fee 1 EACH in Sodium Chloride 0.9% 100 ML IVPB SCH (13:49)
[2021-10-16] MEDS ORDERED: Sodium Bicarbonate 75 MEQ in Sodium Chloride 0.45% 1,000 ML IV SCH (16:00)
[2021-10-16] MEDS: Labetalol HCl 100 MG TAB PO SCH (21:30)
[2021-10-17] MEDS: Pantoprazole 80 MG, Admixture Fee 1 EACH in Sodium Chloride 0.9% 100 ML IVPB SCH ×2 (01:25→11:05)
[2021-10-17 06:55] LABS: #Eosinphils 0.1 thou/uL (0.0-0.7); #Lymphocytes 1.9 thou/uL (1.20-3.40); #Monocytes 1.4 thou/uL (0.11-0.59); #Neutrophils 8.8 thou/uL (1.40-6.50); %Eosinophils 0.6 % (0.0-10.0); %Lymphocytes 15.7 % (21.0-51.0); %Monocytes 11.4 % (0.0-10.0); %Neutrophils 72.2 % (42.0-75.0); Mean Corpuscular HGB CONC 34.6 g/dL (32.0-36.0); Mean Corpuscular Hemoglobin 31.6 pg (27.0-31.0); Mean Corpuscular Volume 91.3 fL (78.0-98.0); Mean Platelet Volume 7.4 fL (7.4-10.4); Platelet Count 221 thou/uL (130-400); RBC Distribution Width 16.2 % (11.5-14.5); Red Blood Cell (RBC) Count 1.89 mill/uL (4.70-6.10); White Blood Cell (WBC) Count 12.1 thou/uL (4.8-10.8)
[2021-10-17 07:04] LABS: Prothrombin Time 53.9 sec (12.0-14.7)
[2021-10-17 07:14] LABS: Anion Gap 13 mmol/L (10-20); BUN (Urea Nitrogen) 72 mg/dL (8.4-25.7); Calc. Creatinine Clearance 24 mL/min (70-130); Calcium 8.4 mg/dL (7.8-10.44); Carbon Dioxide 20 mmol/L (23-31); Chloride 108 mmol/L (98-107); Glucose 105 mg/dL (83-110); Sodium 137 mmol/L (136-145)
[2021-10-17 07:50] LABS: INR-International Normal Ratio 5.8
[2021-10-17] MEDS: NIFEdipine XL 90 MG TAB PO SCH (08:22)
[2021-10-17] MEDS: Ferrous Sulfate 325 MG TAB PO SCH ×2 (08:22→17:59)
[2021-10-17] MEDS: Labetalol HCl 100 MG TAB PO SCH ×2 (08:23→21:44)
[2021-10-17] MEDS ORDERED: Sodium Bicarbonate 150 MEQ in Dextrose 5% in Water 1,000 ML IV SCH (09:00)
[2021-10-17] MEDS ORDERED: Furosemide 40 MG/4 ML VIAL SLOW IVP SCH (18:45)
[2021-10-18] MEDS: Pantoprazole 80 MG, Admixture Fee 1 EACH in Sodium Chloride 0.9% 100 ML IVPB SCH (00:14)
[2021-10-18] MEDS: Labetalol HCl 100 MG TAB PO SCH ×2 (08:02→21:36)
[2021-10-18] MEDS: NIFEdipine XL 90 MG TAB PO SCH (08:02)
[2021-10-18] MEDS: Ferrous Sulfate 325 MG TAB PO SCH ×2 (08:02→17:11)
[2021-10-18 08:24] LABS: #Basophils 0.1 thou/uL (0.0-0.2); #Eosinphils 0.2 thou/uL (0.0-0.7); #Lymphocytes 1.3 thou/uL (1.20-3.40); #Monocytes 0.9 thou/uL (0.11-0.59); #Neutrophils 4.7 thou/uL (1.40-6.50); %Basophils 0.9 % (0.0-1.0); %Eosinophils 3.4 % (0.0-10.0); %Lymphocytes 17.6 % (21.0-51.0); %Monocytes 12.5 % (0.0-10.0); %Neutrophils 65.6 % (42.0-75.0); Mean Corpuscular HGB CONC 34.4 g/dL (32.0-36.0); Mean Corpuscular Hemoglobin 31.3 pg (27.0-31.0); Mean Corpuscular Volume 90.9 fL (78.0-98.0); Mean Platelet Volume 7.5 fL (7.4-10.4); Platelet Count 252 thou/uL (130-400); RBC Distribution Width 15.6 % (11.5-14.5); Red Blood Cell (RBC) Count 2.87 mill/uL (4.70-6.10); White Blood Cell (WBC) Count 7.2 thou/uL (4.8-10.8)
[2021-10-18 08:50] LABS: Albumin 3.4 g/dL (3.4-4.8); Chloride 104 mmol/L (98-107); Potassium 3.5 mmol/L (3.5-5.1); Sodium 140 mmol/L (136-145)
[2021-10-18 09:02] LABS: INR-International Normal Ratio 1.9; Prothrombin Time 22.5 sec (12.0-14.7)
[2021-10-18 09:12] LABS: Anion Gap 12 mmol/L (10-20); Calc. Creatinine Clearance 28 mL/min (70-130); Calcium 8.9 mg/dL (7.8-10.44); Carbon Dioxide 28 mmol/L (23-31); Glucose 90 mg/dL (83-110); Phosphorus 3.6 mg/dL (2.3-4.7)
[2021-10-18 09:27] LABS: BUN (Urea Nitrogen) 54 mg/dL (8.4-25.7); BUN/Creatinine Ratio 29.51
[2021-10-18] MEDS: Warfarin Sodium 10 MG TAB PO SCH (17:11)
[2021-10-19] MEDS: Ferrous Sulfate 325 MG TAB PO SCH ×2 (07:32→15:03)
[2021-10-19] MEDS: NIFEdipine XL 90 MG TAB PO SCH (07:33)
[2021-10-19] MEDS: Labetalol HCl 100 MG TAB PO SCH (08:10)
[2021-10-19 08:13] VITALS: TEMP 98
[2021-10-19 08:38] LABS: INR-International Normal Ratio 1.7; Prothrombin Time 19.9 sec (12.0-14.7)
[2021-10-19 08:43] LABS: Albumin 3.3 g/dL (3.4-4.8); Anion Gap 11 mmol/L (10-20); BUN (Urea Nitrogen) 40 mg/dL (8.4-25.7); BUN/Creatinine Ratio 23.95; Calc. Creatinine Clearance 31 mL/min (70-130); Calcium 8.9 mg/dL (7.8-10.44); Carbon Dioxide 25 mmol/L (23-31); Chloride 108 mmol/L (98-107); Glucose 96 mg/dL (83-110); Phosphorus 3.4 mg/dL (2.3-4.7); Potassium 4.2 mmol/L (3.5-5.1); Sodium 140 mmol/L (136-145)
[2021-10-19 11:13] VITALS: BP 114/65
[2021-10-19] MEDS: Warfarin Sodium 10 MG TAB PO SCH (15:04)
== END 2021-10-19 17:57 | disposition home health service (06) | DRG 813 ==
LOC: ERS 21:49 → T4-B 10-16 02:48
PROVIDERS: ADMIT Internal Medicine; ATTEND Hospitalist
PROC: 30233N1 Transfusion of Nonautologous Red Blood Cells into Peripheral Vein, Percutaneous Approach (ICD-10-PCS; 2021-10-16)
PROC: 30233L1 Transfusion of Nonautologous Fresh Plasma into Peripheral Vein, Percutaneous Approach (ICD-10-PCS; principal; 2021-10-17)
PROC: 30233K1 Transfusion of Nonautologous Frozen Plasma into Peripheral Vein, Percutaneous Approach (ICD-10-PCS; 2021-10-17)
DX: D68.32 Hemorrhagic disorder due to extrinsic circulating anticoagulants (principal); D62 Acute posthemorrhagic anemia; I13.0 Hypertensive heart and chronic kidney disease with heart failure and stage 1 through stage 4 chronic kidney disease, or unspecified chronic kidney disease; K92.2 Gastrointestinal hemorrhage, unspecified; N17.9 Acute kidney failure, unspecified; E87.2 Acidosis; E78.5 Hyperlipidemia, unspecified; I73.9 Peripheral vascular disease, unspecified; I50.9 Heart failure, unspecified; I25.10 Atherosclerotic heart disease of native coronary artery without angina pectoris; N18.32 Chronic kidney disease, stage 3b; T45.515A Adverse effect of anticoagulants, initial encounter; D63.1 Anemia in chronic kidney disease; Z88.5 Allergy status to narcotic agent; Z79.899 Other long term (current) drug therapy; Z79.01 Long term (current) use of anticoagulants; Z95.2 Presence of prosthetic heart valve; Z95.0 Presence of cardiac pacemaker; I25.2 Old myocardial infarction; Z87.891 Personal history of nicotine dependence; Z85.51 Personal history of malignant neoplasm of bladder
CPT/HCPCS: 36415; 36430; 71045; 80048; 80053; 80069; 81003; 81015; 82274; 82570; 82728; 83540; 83550; 83880; 84156; 84300; 84484; 84540; 85025; 85610; 85730; 86850; 86900; 86901; 87086; 93005; 96365; 96375; 96376; C9113; J1940; J2930; J3490; J7070; J7620; P9016; P9059

== ENCOUNTER 2021-11-04 18:11 | Emergency (ER) | payer MEDICARE ==
[2021-11-04 18:55] LABS: #Eosinphils 0.3 thou/uL (0.0-0.7); #Lymphocytes 0.9 thou/uL (1.20-3.40); #Monocytes 0.6 thou/uL (0.11-0.59); #Neutrophils 2.8 thou/uL (1.40-6.50); %Basophils 0.9 % (0.0-1.0); %Eosinophils 6.6 % (0.0-10.0); %Lymphocytes 19.2 % (21.0-51.0); %Monocytes 13.3 % (0.0-10.0); %Neutrophils 60.1 % (42.0-75.0); Hemoglobin 9.8 g/dL (14.0-18.0); Mean Corpuscular Hemoglobin 30.4 pg (27.0-31.0); Mean Corpuscular Volume 89.5 fL (78.0-98.0); Mean Platelet Volume 6.9 fL (7.4-10.4); Platelet Count 422 thou/uL (130-400); RBC Distribution Width 13.5 % (11.5-14.5); Red Blood Cell (RBC) Count 3.23 mill/uL (4.70-6.10); White Blood Cell (WBC) Count 4.7 thou/uL (4.8-10.8)
[2021-11-04 19:14] LABS: Bilirubin Negative (Negative); Blood, Urine Negative (Negative); Clarity Clear (Clear); Glucose, Urine (Dipstick) Normal (Negative); Ketone, Urine Negative (Negative); Leukocyte Negative Leu/uL (Negative); Nitrite Negative (Negative); Protein, Urine (Dipstick) Negative (Neg-Trace); Specific Gravity, Urine 1.007 (1.002-1.036); Urobilinogen Normal mg/dL (Less than 2); pH, Urine 7.5 (5.0-9.0)
[2021-11-04 19:19] LABS: PTT 63.4 sec (22.9-36.1)
[2021-11-04 19:21] LABS: ALT (SGPT) 14 U/L (8-55); AST (SGOT) 21 U/L (5-34); Albumin 3.8 g/dL (3.4-4.8); Alkaline Phosphatase 90 U/L (40-110); Anion Gap 12 mmol/L (10-20); BUN (Urea Nitrogen) 29 mg/dL (8.4-25.7); Bilirubin, Total 0.2 mg/dL (0.2-1.2); Calc. Creatinine Clearance 0 mL/min (70-130); Calcium 9.6 mg/dL (7.8-10.44); Carbon Dioxide 24 mmol/L (23-31); Chloride 106 mmol/L (98-107); Globulin 2.9 g/dL (2.4-3.5); Glucose 101 mg/dL (83-110); Potassium 5.8 mmol/L (3.5-5.1); Protein, Total 6.7 g/dL (5.8-8.1); Sodium 136 mmol/L (136-145)
[2021-11-04 19:34] LABS: Prothrombin Time 52.6 sec (12.0-14.7)
[2021-11-04 19:37] LABS: INR-International Normal Ratio 5.7
== END 2021-11-04 20:39 | disposition home or self-care (01) ==
LOC: ERS 18:11
DX: R79.1 Abnormal coagulation profile (principal); I11.0 Hypertensive heart disease with heart failure; I50.9 Heart failure, unspecified; I25.2 Old myocardial infarction; J44.9 Chronic obstructive pulmonary disease, unspecified; Z87.891 Personal history of nicotine dependence; Z86.16 Personal history of COVID-19; Z79.01 Long term (current) use of anticoagulants; Z79.02 Long term (current) use of antithrombotics/antiplatelets; Z79.899 Other long term (current) drug therapy
CPT/HCPCS: 36415; 80053; 81003; 84484; 85025; 85610; 85730; 93005

== ENCOUNTER 2023-07-05 01:23 | Inpatient (IN) | payer OTHER ==
[2023-07-05] MEDS ORDERED: Acetaminophen 650 MG Suppository PR PRN (05:17)
[2023-07-05] MEDS ORDERED: Ondansetron ODT 4 MG TAB PO PRN (05:17)
[2023-07-05] MEDS ORDERED: Ondansetron PF 4 MG/2 ML Vial IVP PRN (05:17)
[2023-07-05] MEDS ORDERED: Albuterol 200 PUFF (6.7GM INHALER) INH PRN (05:17)
[2023-07-05] MEDS: Benzonatate 100 MG CAP PO PRN ×2 (05:58→21:09)
[2023-07-05] MEDS: Acetaminophen 325 MG TAB PO PRN ×2 (05:58→21:08)
[2023-07-05] MEDS ORDERED: Heparin 25,000 units/D5W 500 ML IVPB SCH (06:15)
[2023-07-05 07:03] LABS: Hematocrit 31.2 % (42.0-52.0); Hemoglobin 10.1 g/dL (14.0-18.0); Platelet Count 217 10x3/uL (130-400)
[2023-07-05] MEDS: Heparin 10,000 UNITS/ 10 ML VIAL SLOW IVP SCH (07:57)
[2023-07-05] MEDS: Cholecalciferol (Vitamin D3) 400 UNITS TAB PO SCH (08:06)
[2023-07-05] MEDS: Ascorbic Acid 500 mg Chewable Tablet PO SCH (08:06)
[2023-07-05] MEDS: Furosemide 40 MG/4 ML VIAL SLOW IVP SCH (08:07)
[2023-07-05] MEDS: Zinc Sulfate 220 MG CAP PO SCH (08:07)
[2023-07-05 08:16] LABS: Troponin I 0.089 ng/mL (< 0.028)
[2023-07-05] MEDS: Dronedarone HCl 400 MG TAB PO SCH (16:09)
[2023-07-05] MEDS ORDERED: Warfarin Sodium 2.5 MG TAB PO SCH (17:00)
[2023-07-05] MEDS: Atorvastatin Calcium 10 MG TAB PO SCH (21:09)
[2023-07-06 04:42] LABS: #Eosinphils 0.1 thou/uL (0.0-0.7); #Monocytes 0.6 thou/uL (0.11-0.59); #Neutrophils 3.4 thou/uL (1.40-6.50); %Basophils 0.6 % (0.0-1.0); %Eosinophils 1.2 % (0.0-10.0); %Lymphocytes 15.4 % (21.0-51.0); %Monocytes 12.8 % (0.0-10.0); %Neutrophils 69.8 % (42.0-75.0); Hemoglobin 10.4 g/dL (14.0-18.0); Mean Corpuscular HGB CONC 31.5 g/dL (32.0-36.0); Mean Corpuscular Hemoglobin 25.4 pg (27.0-31.0); Mean Corpuscular Volume 80.5 fl (78.0-98.0); Mean Platelet Volume 9.8 fL (7.4-10.4); Platelet Count 217 10x3/uL (130-400); RBC Distribution Width 17.9 % (11.5-14.5); White Blood Cell (WBC) Count 4.9 10x3/uL (4.8-10.8)
[2023-07-06 05:05] LABS: Prothrombin Time 13.6 sec (12.0-14.7)
[2023-07-06 05:06] LABS: Anion Gap 12 mmol/L (10-20); BUN (Urea Nitrogen) 32 mg/dL (8.4-25.7); Calc. Creatinine Clearance 20 mL/min (70-130); Calcium 9.1 mg/dL (7.8-10.44); Carbon Dioxide 24 mmol/L (23-31); Chloride 104 mmol/L (98-107); Estimated GFR 31; Glucose 91 mg/dL (83-110); PTT 64.3 sec (22.9-36.1); Potassium 3.5 mmol/L (3.5-5.1); Sodium 136 mmol/L (136-145)
[2023-07-06] MEDS: Heparin 10,000 UNITS/ 10 ML VIAL SLOW IVP SCH (05:46)
[2023-07-06] MEDS: Sodium Chloride 0.9% 1,000 ML IV SCH ×2 (09:49→20:41)
[2023-07-06] MEDS: Cholecalciferol (Vitamin D3) 400 UNITS TAB PO SCH (09:51)
[2023-07-06] MEDS: Furosemide 40 MG/4 ML VIAL SLOW IVP SCH (09:51)
[2023-07-06] MEDS: Zinc Sulfate 220 MG CAP PO SCH (09:51)
[2023-07-06] MEDS: NIFEdipine XL 90 MG TAB PO SCH (09:51)
[2023-07-06] MEDS: Ascorbic Acid 500 mg Chewable Tablet PO SCH (09:51)
[2023-07-06] MEDS: Dronedarone HCl 400 MG TAB PO SCH ×2 (09:51→18:41)
[2023-07-06] MEDS ORDERED: Amlodipine 5 MG TAB PO SCH (14:15)
[2023-07-06] MEDS: Benzonatate 100 MG CAP PO PRN (14:15)
[2023-07-06] MEDS: Acetaminophen 325 MG TAB PO PRN (14:15)
[2023-07-06] MEDS: Warfarin Sodium 5 MG TAB PO SCH (18:41)
[2023-07-06] MEDS: Atorvastatin Calcium 10 MG TAB PO SCH (20:40)
[2023-07-07 05:41] LABS: #Eosinphils 0.1 thou/uL (0.0-0.7); #Monocytes 0.5 thou/uL (0.11-0.59); #Neutrophils 1.6 thou/uL (1.40-6.50); %Eosinophils 4.4 % (0.0-10.0); %Lymphocytes 27.6 % (21.0-51.0); %Monocytes 14.6 % (0.0-10.0); %Neutrophils 52.1 % (42.0-75.0); Hematocrit 31.3 % (42.0-52.0); Mean Corpuscular HGB CONC 31.9 g/dL (32.0-36.0); Mean Corpuscular Hemoglobin 25.8 pg (27.0-31.0); Mean Corpuscular Volume 80.7 fl (78.0-98.0); Mean Platelet Volume 10.9 fL (7.4-10.4); Platelet Count 239 10x3/uL (130-400); RBC Distribution Width 17.6 % (11.5-14.5); Red Blood Cell (RBC) Count 3.88 mill/uL (4.70-6.10); White Blood Cell (WBC) Count 3.2 10x3/uL (4.8-10.8)
[2023-07-07 06:04] LABS: Anion Gap 15 mmol/L (10-20); BUN (Urea Nitrogen) 30 mg/dL (8.4-25.7); Calc. Creatinine Clearance 22 mL/min (70-130); Calcium 8.7 mg/dL (7.8-10.44); Carbon Dioxide 21 mmol/L (23-31); Chloride 105 mmol/L (98-107); Estimated GFR 34; Glucose 82 mg/dL (83-110); Potassium 3.5 mmol/L (3.5-5.1); Sodium 137 mmol/L (136-145)
[2023-07-07] MEDS: Dronedarone HCl 400 MG TAB PO SCH ×2 (07:45→16:32)
[2023-07-07 08:12] LABS: Prothrombin Time 13.5 sec (12.0-14.7)
[2023-07-07] MEDS: NIFEdipine XL 90 MG TAB PO SCH (08:57)
[2023-07-07] MEDS: Cholecalciferol (Vitamin D3) 400 UNITS TAB PO SCH (08:57)
[2023-07-07] MEDS: Ascorbic Acid 500 mg Chewable Tablet PO SCH (08:57)
[2023-07-07] MEDS: Zinc Sulfate 220 MG CAP PO SCH (08:57)
[2023-07-07] MEDS: Furosemide 40 MG/4 ML VIAL SLOW IVP SCH (08:57)
[2023-07-07] MEDS: Amlodipine 5 MG TAB PO SCH (08:57)
[2023-07-07] MEDS: Sodium Chloride 0.9% 1,000 ML IV SCH (08:58)
[2023-07-07] MEDS ORDERED: Dexamethasone 4 MG TAB PO SCH (13:00)
[2023-07-07] MEDS: Warfarin Sodium 5 MG TAB PO SCH (16:32)
[2023-07-07] MEDS: Atorvastatin Calcium 10 MG TAB PO SCH (21:15)
[2023-07-08] MEDS: Sodium Chloride 0.9% 1,000 ML IV SCH ×2 (00:11→13:52)
[2023-07-08 05:38] LABS: #Monocytes 0.2 thou/uL (0.11-0.59); #Neutrophils 1.3 thou/uL (1.40-6.50); %Basophils 0.5 % (0.0-1.0); %Lymphocytes 25.3 % (21.0-51.0); %Monocytes 8.1 % (0.0-10.0); %Neutrophils 65.6 % (42.0-75.0); Hematocrit 33.8 % (42.0-52.0); Hemoglobin 10.7 g/dL (14.0-18.0); Mean Corpuscular HGB CONC 31.7 g/dL (32.0-36.0); Mean Corpuscular Hemoglobin 25.5 pg (27.0-31.0); Mean Corpuscular Volume 80.5 fl (78.0-98.0); Mean Platelet Volume 9.5 fL (7.4-10.4); Platelet Count 229 10x3/uL (130-400); RBC Distribution Width 17.5 % (11.5-14.5)
[2023-07-08 05:56] LABS: INR-International Normal Ratio 1.2
[2023-07-08 06:14] LABS: Anion Gap 15 mmol/L (10-20); BUN (Urea Nitrogen) 28 mg/dL (8.4-25.7); Calc. Creatinine Clearance 27 mL/min (70-130); Calcium 8.5 mg/dL (7.8-10.44); Carbon Dioxide 17 mmol/L (23-31); Chloride 105 mmol/L (98-107); Estimated GFR 41; Glucose 134 mg/dL (83-110); Sodium 133 mmol/L (136-145)
[2023-07-08] MEDS: Amlodipine 5 MG TAB PO SCH (09:14)
[2023-07-08] MEDS: Acetaminophen 325 MG TAB PO PRN (09:14)
[2023-07-08] MEDS: NIFEdipine XL 90 MG TAB PO SCH (09:15)
[2023-07-08] MEDS: Ascorbic Acid 500 mg Chewable Tablet PO SCH (09:15)
[2023-07-08] MEDS: Dexamethasone 4 MG TAB PO SCH (09:15)
[2023-07-08] MEDS: Cholecalciferol (Vitamin D3) 400 UNITS TAB PO SCH (09:15)
[2023-07-08] MEDS: Dronedarone HCl 400 MG TAB PO SCH ×2 (09:15→16:42)
[2023-07-08] MEDS: Zinc Sulfate 220 MG CAP PO SCH (09:15)
[2023-07-08] MEDS: Furosemide 40 MG/4 ML VIAL SLOW IVP SCH (09:22)
[2023-07-08] MEDS: Warfarin Sodium 5 MG TAB PO SCH (16:42)
[2023-07-08] MEDS: Atorvastatin Calcium 10 MG TAB PO SCH (20:41)
[2023-07-09] MEDS: Sodium Chloride 0.9% 1,000 ML IV SCH ×2 (03:06→16:49)
[2023-07-09 05:50] LABS: #Monocytes 0.5 thou/uL (0.11-0.59); #Neutrophils 5.7 thou/uL (1.40-6.50); %Lymphocytes 10.9 % (21.0-51.0); %Monocytes 7.4 % (0.0-10.0); %Neutrophils 81.1 % (42.0-75.0); Hematocrit 30.3 % (42.0-52.0); Hemoglobin 9.6 g/dL (14.0-18.0); Mean Corpuscular HGB CONC 31.7 g/dL (32.0-36.0); Mean Corpuscular Hemoglobin 25.7 pg (27.0-31.0); Mean Platelet Volume 9.6 fL (7.4-10.4); Platelet Count 228 10x3/uL (130-400); RBC Distribution Width 17.9 % (11.5-14.5); Red Blood Cell (RBC) Count 3.74 mill/uL (4.70-6.10); White Blood Cell (WBC) Count 7.1 10x3/uL (4.8-10.8)
[2023-07-09 06:02] LABS: INR-International Normal Ratio 1.6; Prothrombin Time 19.9 sec (12.0-14.7)
[2023-07-09 06:14] LABS: Anion Gap 11 mmol/L (10-20); BUN (Urea Nitrogen) 24 mg/dL (8.4-25.7); Calc. Creatinine Clearance 32 mL/min (70-130); Calcium 8.5 mg/dL (7.8-10.44); Carbon Dioxide 22 mmol/L (23-31); Chloride 109 mmol/L (98-107); Estimated GFR 48; Glucose 109 mg/dL (83-110); Potassium 3.9 mmol/L (3.5-5.1); Sodium 138 mmol/L (136-145)
[2023-07-09] MEDS: Ascorbic Acid 500 mg Chewable Tablet PO SCH (09:46)
[2023-07-09] MEDS: Dronedarone HCl 400 MG TAB PO SCH ×2 (09:47→16:50)
[2023-07-09] MEDS: Amlodipine 5 MG TAB PO SCH (09:47)
[2023-07-09] MEDS: Zinc Sulfate 220 MG CAP PO SCH (09:47)
[2023-07-09] MEDS: Dexamethasone 4 MG TAB PO SCH (09:48)
[2023-07-09] MEDS: Cholecalciferol (Vitamin D3) 400 UNITS TAB PO SCH (09:48)
[2023-07-09] MEDS: NIFEdipine XL 90 MG TAB PO SCH (09:48)
[2023-07-09] MEDS: Furosemide 40 MG/4 ML VIAL SLOW IVP SCH (09:49)
[2023-07-09] MEDS: Mag-Al 1200 mg/1200 mg/30 ML UDCUP PO PRN ×2 (09:49→21:07)
[2023-07-09] MEDS: Warfarin Sodium 5 MG TAB PO SCH (16:50)
[2023-07-09] MEDS: Atorvastatin Calcium 10 MG TAB PO SCH (21:05)
[2023-07-10 05:45] LABS: #Monocytes 0.4 thou/uL (0.11-0.59); #Neutrophils 6.1 thou/uL (1.40-6.50); %Lymphocytes 11.3 % (21.0-51.0); %Monocytes 5.3 % (0.0-10.0); %Neutrophils 82.6 % (42.0-75.0); Hematocrit 34.8 % (42.0-52.0); Hemoglobin 11.2 g/dL (14.0-18.0); Mean Corpuscular HGB CONC 32.2 g/dL (32.0-36.0); Mean Corpuscular Hemoglobin 25.6 pg (27.0-31.0); Mean Corpuscular Volume 79.5 fl (78.0-98.0); Mean Platelet Volume 10.1 fL (7.4-10.4); Platelet Count 281 10x3/uL (130-400); RBC Distribution Width 17.7 % (11.5-14.5); Red Blood Cell (RBC) Count 4.38 mill/uL (4.70-6.10); White Blood Cell (WBC) Count 7.4 10x3/uL (4.8-10.8)
[2023-07-10 05:54] LABS: INR-International Normal Ratio 1.9; Prothrombin Time 22.3 sec (12.0-14.7)
[2023-07-10 06:06] LABS: Anion Gap 13 mmol/L (10-20); BUN (Urea Nitrogen) 26 mg/dL (8.4-25.7); Calc. Creatinine Clearance 31 mL/min (70-130); Calcium 8.8 mg/dL (7.8-10.44); Carbon Dioxide 23 mmol/L (23-31); Chloride 106 mmol/L (98-107); Estimated GFR 47; Glucose 120 mg/dL (83-110); Potassium 4.1 mmol/L (3.5-5.1); Sodium 138 mmol/L (136-145)
[2023-07-10] MEDS: Amlodipine 5 MG TAB PO SCH (09:56)
[2023-07-10] MEDS: Dronedarone HCl 400 MG TAB PO SCH ×2 (09:56→17:19)
[2023-07-10] MEDS: Dexamethasone 4 MG TAB PO SCH (09:56)
[2023-07-10] MEDS: Cholecalciferol (Vitamin D3) 400 UNITS TAB PO SCH (09:56)
[2023-07-10] MEDS: Ascorbic Acid 500 mg Chewable Tablet PO SCH (09:56)
[2023-07-10] MEDS: NIFEdipine XL 90 MG TAB PO SCH (09:57)
[2023-07-10] MEDS: Furosemide 40 MG/4 ML VIAL SLOW IVP SCH (09:57)
[2023-07-10] MEDS: Zinc Sulfate 220 MG CAP PO SCH (09:57)
[2023-07-10 15:18] VITALS: BMI 20.4
[2023-07-10] MEDS: Warfarin Sodium 5 MG TAB PO SCH (17:20)
[2023-07-10] MEDS: Atorvastatin Calcium 10 MG TAB PO SCH (20:54)
[2023-07-11 05:02] LABS: #Monocytes 0.6 thou/uL (0.11-0.59); #Neutrophils 5.1 thou/uL (1.40-6.50); %Lymphocytes 15.2 % (21.0-51.0); %Monocytes 9.2 % (0.0-10.0); %Neutrophils 74.7 % (42.0-75.0); Hematocrit 29.7 % (42.0-52.0); Hemoglobin 9.5 g/dL (14.0-18.0); Mean Corpuscular Hemoglobin 25.5 pg (27.0-31.0); Mean Corpuscular Volume 79.8 fl (78.0-98.0); Mean Platelet Volume 9.4 fL (7.4-10.4); Platelet Count 273 10x3/uL (130-400); RBC Distribution Width 17.9 % (11.5-14.5); Red Blood Cell (RBC) Count 3.72 mill/uL (4.70-6.10); White Blood Cell (WBC) Count 6.9 10x3/uL (4.8-10.8)
[2023-07-11 05:15] LABS: INR-International Normal Ratio 2.2
[2023-07-11 05:32] LABS: Anion Gap 9 mmol/L (10-20); BUN (Urea Nitrogen) 32 mg/dL (8.4-25.7); Calc. Creatinine Clearance 27 mL/min (70-130); Calcium 8.5 mg/dL (7.8-10.44); Carbon Dioxide 25 mmol/L (23-31); Chloride 105 mmol/L (98-107); Estimated GFR 41; Glucose 92 mg/dL (83-110); Potassium 4.3 mmol/L (3.5-5.1); Sodium 135 mmol/L (136-145)
[2023-07-11] MEDS: NIFEdipine XL 90 MG TAB PO SCH (08:23)
[2023-07-11] MEDS: Ascorbic Acid 500 mg Chewable Tablet PO SCH (08:23)
[2023-07-11] MEDS: Cholecalciferol (Vitamin D3) 400 UNITS TAB PO SCH (08:23)
[2023-07-11] MEDS: Amlodipine 5 MG TAB PO SCH (08:23)
[2023-07-11] MEDS: Furosemide 40 MG/4 ML VIAL SLOW IVP SCH (08:23)
[2023-07-11] MEDS: Zinc Sulfate 220 MG CAP PO SCH (08:23)
[2023-07-11] MEDS: Dronedarone HCl 400 MG TAB PO SCH ×2 (08:23→16:41)
[2023-07-11] MEDS: Warfarin Sodium 5 MG TAB PO SCH (16:41)
[2023-07-11] MEDS: Atorvastatin Calcium 10 MG TAB PO SCH (20:01)
[2023-07-12 05:24] LABS: #Eosinphils 0.2 thou/uL (0.0-0.7); #Monocytes 0.6 thou/uL (0.11-0.59); #Neutrophils 3.2 thou/uL (1.40-6.50); %Basophils 0.3 % (0.0-1.0); %Eosinophils 3.3 % (0.0-10.0); %Lymphocytes 29.9 % (21.0-51.0); %Neutrophils 54.5 % (42.0-75.0); Hematocrit 31.6 % (42.0-52.0); Hemoglobin 10.2 g/dL (14.0-18.0); Mean Corpuscular HGB CONC 32.3 g/dL (32.0-36.0); Mean Corpuscular Hemoglobin 25.5 pg (27.0-31.0); Mean Platelet Volume 10.3 fL (7.4-10.4); Platelet Count 313 10x3/uL (130-400); RBC Distribution Width 17.7 % (11.5-14.5); White Blood Cell (WBC) Count 5.8 10x3/uL (4.8-10.8)
[2023-07-12 05:40] LABS: INR-International Normal Ratio 2.2; Prothrombin Time 24.9 sec (12.0-14.7)
[2023-07-12 05:52] LABS: Anion Gap 10 mmol/L (10-20); BUN (Urea Nitrogen) 36 mg/dL (8.4-25.7); Calc. Creatinine Clearance 31 mL/min (70-130); Calcium 8.4 mg/dL (7.8-10.44); Carbon Dioxide 26 mmol/L (23-31); Chloride 103 mmol/L (98-107); Estimated GFR 46; Glucose 85 mg/dL (83-110); Potassium 4.3 mmol/L (3.5-5.1); Sodium 135 mmol/L (136-145)
[2023-07-12] MEDS: Furosemide 40 MG/4 ML VIAL SLOW IVP SCH (09:16)
[2023-07-12] MEDS: Ascorbic Acid 500 mg Chewable Tablet PO SCH (09:16)
[2023-07-12] MEDS: Dronedarone HCl 400 MG TAB PO SCH ×2 (09:16→16:59)
[2023-07-12] MEDS: Zinc Sulfate 220 MG CAP PO SCH (09:16)
[2023-07-12] MEDS: Cholecalciferol (Vitamin D3) 400 UNITS TAB PO SCH (09:17)
[2023-07-12] MEDS: Amlodipine 5 MG TAB PO SCH (09:17)
[2023-07-12] MEDS: NIFEdipine XL 90 MG TAB PO SCH (09:17)
[2023-07-12] MEDS: Warfarin Sodium 3 MG TAB PO SCH (16:59)
[2023-07-12] MEDS: Atorvastatin Calcium 10 MG TAB PO SCH (20:08)
[2023-07-13 06:02] LABS: #Eosinphils 0.3 thou/uL (0.0-0.7); #Monocytes 0.7 thou/uL (0.11-0.59); #Neutrophils 3.3 thou/uL (1.40-6.50); %Basophils 0.5 % (0.0-1.0); %Eosinophils 4.2 % (0.0-10.0); %Lymphocytes 28.5 % (21.0-51.0); %Monocytes 11.3 % (0.0-10.0); %Neutrophils 53.6 % (42.0-75.0); Hematocrit 31.3 % (42.0-52.0); Mean Corpuscular HGB CONC 31.9 g/dL (32.0-36.0); Mean Corpuscular Hemoglobin 25.4 pg (27.0-31.0); Mean Corpuscular Volume 79.6 fl (78.0-98.0); Mean Platelet Volume 9.9 fL (7.4-10.4); Platelet Count 318 10x3/uL (130-400); RBC Distribution Width 17.8 % (11.5-14.5); Red Blood Cell (RBC) Count 3.93 mill/uL (4.70-6.10); White Blood Cell (WBC) Count 6.2 10x3/uL (4.8-10.8)
[2023-07-13 06:24] LABS: INR-International Normal Ratio 2.4; Prothrombin Time 27.4 sec (12.0-14.7)
[2023-07-13 06:29] LABS: Anion Gap 11 mmol/L (10-20); BUN (Urea Nitrogen) 39 mg/dL (8.4-25.7); Calc. Creatinine Clearance 23 mL/min (70-130); Calcium 8.8 mg/dL (7.8-10.44); Carbon Dioxide 29 mmol/L (23-31); Chloride 101 mmol/L (98-107); Estimated GFR 35; Glucose 84 mg/dL (83-110); Potassium 4.7 mmol/L (3.5-5.1); Sodium 136 mmol/L (136-145)
[2023-07-13] MEDS: Dronedarone HCl 400 MG TAB PO SCH ×2 (08:56→16:27)
[2023-07-13] MEDS: Amlodipine 5 MG TAB PO SCH (08:56)
[2023-07-13] MEDS: Cholecalciferol (Vitamin D3) 400 UNITS TAB PO SCH (08:56)
[2023-07-13] MEDS: Furosemide 40 MG/4 ML VIAL SLOW IVP SCH (08:56)
[2023-07-13] MEDS: Ascorbic Acid 500 mg Chewable Tablet PO SCH (08:56)
[2023-07-13] MEDS: NIFEdipine XL 90 MG TAB PO SCH (08:57)
[2023-07-13] MEDS: Zinc Sulfate 220 MG CAP PO SCH (08:57)
[2023-07-13] MEDS ORDERED: Lactated Ringer's 1,000 ML IV SCH (09:15)
[2023-07-13] MEDS: Warfarin Sodium 3 MG TAB PO SCH (16:27)
[2023-07-13] MEDS: Atorvastatin Calcium 10 MG TAB PO SCH (20:40)
[2023-07-14 04:52] LABS: #Eosinphils 0.3 thou/uL (0.0-0.7); #Monocytes 0.7 thou/uL (0.11-0.59); #Neutrophils 2.8 thou/uL (1.40-6.50); %Basophils 0.5 % (0.0-1.0); %Eosinophils 4.5 % (0.0-10.0); %Lymphocytes 28.9 % (21.0-51.0); %Monocytes 13.3 % (0.0-10.0); %Neutrophils 51.5 % (42.0-75.0); Hematocrit 31.2 % (42.0-52.0); Hemoglobin 10.2 g/dL (14.0-18.0); Mean Corpuscular HGB CONC 32.7 g/dL (32.0-36.0); Mean Corpuscular Hemoglobin 25.6 pg (27.0-31.0); Mean Corpuscular Volume 78.4 fl (78.0-98.0); Mean Platelet Volume 9.4 fL (7.4-10.4); Platelet Count 323 10x3/uL (130-400); RBC Distribution Width 17.8 % (11.5-14.5); Red Blood Cell (RBC) Count 3.98 mill/uL (4.70-6.10); White Blood Cell (WBC) Count 5.5 10x3/uL (4.8-10.8)
[2023-07-14 05:12] LABS: INR-International Normal Ratio 2.7; Prothrombin Time 29.5 sec (12.0-14.7)
[2023-07-14 05:22] LABS: Anion Gap 10 mmol/L (10-20); BUN (Urea Nitrogen) 38 mg/dL (8.4-25.7); Calc. Creatinine Clearance 27 mL/min (70-130); Calcium 8.8 mg/dL (7.8-10.44); Carbon Dioxide 29 mmol/L (23-31); Chloride 101 mmol/L (98-107); Estimated GFR 41; Glucose 86 mg/dL (83-110); Potassium 4.5 mmol/L (3.5-5.1); Sodium 135 mmol/L (136-145)
[2023-07-14] MEDS: Dronedarone HCl 400 MG TAB PO SCH (08:46)
[2023-07-14] MEDS: Cholecalciferol (Vitamin D3) 400 UNITS TAB PO SCH (08:47)
[2023-07-14] MEDS: Ascorbic Acid 500 mg Chewable Tablet PO SCH (08:47)
[2023-07-14] MEDS: NIFEdipine XL 90 MG TAB PO SCH (08:47)
[2023-07-14] MEDS: Amlodipine 5 MG TAB PO SCH (08:47)
[2023-07-14] MEDS: Zinc Sulfate 220 MG CAP PO SCH (08:47)
[2023-07-14 11:49] VITALS: BP 140/64; TEMP 97.4
[2023-07-14] MEDS: Mag-Al 1200 mg/1200 mg/30 ML UDCUP PO PRN (12:46)
== END 2023-07-14 13:41 | disposition home or self-care (01) | DRG 178 ==
LOC: 2SW 01:23 → OBSVTOIN 07-07 12:57
PROVIDERS: ADMIT Student in an Organized Health Care Education/Training Program; ATTEND Hospitalist
DX: U07.1 COVID-19 (principal); I13.0 Hypertensive heart and chronic kidney disease with heart failure and stage 1 through stage 4 chronic kidney disease, or unspecified chronic kidney disease; N17.9 Acute kidney failure, unspecified; I50.9 Heart failure, unspecified; I25.2 Old myocardial infarction; J44.9 Chronic obstructive pulmonary disease, unspecified; I48.91 Unspecified atrial fibrillation; R79.1 Abnormal coagulation profile; D63.1 Anemia in chronic kidney disease; I25.10 Atherosclerotic heart disease of native coronary artery without angina pectoris; N18.9 Chronic kidney disease, unspecified; I73.9 Peripheral vascular disease, unspecified; E05.90 Thyrotoxicosis, unspecified without thyrotoxic crisis or storm; Z88.5 Allergy status to narcotic agent; Z79.01 Long term (current) use of anticoagulants; Z79.899 Other long term (current) drug therapy; Z98.890 Other specified postprocedural states; Z95.4 Presence of other heart-valve replacement; Z85.528 Personal history of other malignant neoplasm of kidney
CPT/HCPCS: 36415; 36416; 80048; 85025; 85610; 85730; 96372; 96374; 96375; 96376; G0378; J1644; J1650; J1940; J7050; J7120; J8540

== ENCOUNTER 2023-12-05 19:14 | Emergency (ER) | payer MEDICARE, OTHER ==
[2023-12-05 20:34] LABS: #Monocytes 0.7 thou/uL (0.11-0.59); #Neutrophils 7.1 thou/uL (1.40-6.50); %Basophils 0.1 % (0.0-1.0); %Eosinophils 0.2 % (0.0-10.0); %Lymphocytes 8.5 % (21.0-51.0); %Monocytes 8.2 % (0.0-10.0); %Neutrophils 82.1 % (42.0-75.0); Hematocrit 32.5 % (42.0-52.0); Hemoglobin 11.2 g/dL (14.0-18.0); Mean Corpuscular HGB CONC 34.5 g/dL (32.0-36.0); Mean Corpuscular Hemoglobin 30.1 pg (27.0-31.0); Mean Corpuscular Volume 87.4 fl (78.0-98.0); Mean Platelet Volume 10.1 fL (7.4-10.4); Platelet Count 323 10x3/uL (130-400); RBC Distribution Width 14.3 % (11.5-14.5); Red Blood Cell (RBC) Count 3.72 mill/uL (4.70-6.10); White Blood Cell (WBC) Count 8.6 10x3/uL (4.8-10.8)
[2023-12-05 20:48] LABS: Prothrombin Time 38.9 sec (12.0-14.7)
[2023-12-05 20:59] LABS: ALT (SGPT) 12 U/L (8-55); AST (SGOT) 20 U/L (5-34); Albumin 3.7 g/dL (3.4-4.8); Alkaline Phosphatase 62 U/L (40-110); Anion Gap 18 mmol/L (10-20); BUN (Urea Nitrogen) 64 mg/dL (8.4-25.7); Bilirubin, Total 0.3 mg/dL (0.2-1.2); Calc. Creatinine Clearance 0 mL/min (70-130); Calcium 9.3 mg/dL (7.8-10.44); Carbon Dioxide 19 mmol/L (23-31); Chloride 106 mmol/L (98-107); Estimated GFR 23; Globulin 3.1 g/dL (2.4-3.5); Glucose 89 mg/dL (83-110); Lipase 54 U/L (8-78); Potassium 4.9 mmol/L (3.5-5.1); Protein, Total 6.8 g/dL (5.8-8.1); Sodium 138 mmol/L (136-145)
[2023-12-05 21:02] LABS: Troponin I 0.026 ng/mL (< 0.028)
== END 2023-12-05 21:47 | disposition home or self-care (01) ==
LOC: ERS 19:14
DX: N17.9 Acute kidney failure, unspecified (principal); E86.0 Dehydration; R79.1 Abnormal coagulation profile; Z55.6 Problems related to health literacy; I11.0 Hypertensive heart disease with heart failure; I50.9 Heart failure, unspecified; J44.9 Chronic obstructive pulmonary disease, unspecified
CPT/HCPCS: 36415; 71045; 80053; 83690; 83880; 84484; 85025; 85610; 85730; 93005

== ENCOUNTER 2024-01-28 04:43 | Inpatient (IN) | payer MEDICARE, OTHER ==
[2024-01-28] MEDS ORDERED: NOREPINEPHRINE 8 MG/250 ML-D5W 250 ML ONE (05:28)
[2024-01-28] MEDS ORDERED: Cefepime 1 GM VIAL ONE (05:28)
[2024-01-28] MEDS ORDERED: Sodium Chloride 0.9% 100 ML ONE (05:28)
[2024-01-28 05:57] LABS: #Basophils 0.03 10x3/uL (0.0-0.2); %Basophils 0.4 % (0.0-1.0); %Eosinophils 1.9 % (0.0-10.0); %Lymphocytes 11.6 % (21.0-51.0); %Monocytes 10.1 % (0.0-10.0); %Neutrophils 75.1 % (42.0-75.0); Hematocrit 17.3 % (42.0-52.0); Mean Corpuscular HGB CONC 34.7 g/dL (32.0-36.0); Mean Corpuscular Hemoglobin 31.4 pg (27.0-31.0); Mean Corpuscular Volume 90.6 fL (78.0-98.0); Mean Platelet Volume 10.4 fL (7.4-10.4); Platelet Count 282 10x3/uL (130-400); RBC Distribution Width 16.4 % (11.5-14.5); Red Blood Cell (RBC) Count 1.91 mill/uL (4.70-6.10)
[2024-01-28 05:59] LABS: ALT (SGPT) 7 U/L (8-55); AST (SGOT) 14 U/L (5-34); Albumin 3.1 g/dL (3.4-4.8); Alkaline Phosphatase 52 U/L (40-110); Anion Gap 19 mmol/L (10-20); BUN (Urea Nitrogen) 78 mg/dL (8.4-25.7); Bilirubin, Total 0.3 mg/dL (0.2-1.2); Calc. Creatinine Clearance 0 mL/min (70-130); Calcium 8.1 mg/dL (7.8-10.44); Carbon Dioxide 14 mmol/L (23-31); Chloride 109 mmol/L (98-107); Estimated GFR 21; Globulin 2.1 g/dL (2.4-3.5); Glucose 142 mg/dL (83-110); Lipase 59 U/L (8-78); Potassium 3.9 mmol/L (3.5-5.1); Protein, Total 5.2 g/dL (5.8-8.1); Sodium 138 mmol/L (136-145); Troponin I 0.016 ng/mL (< 0.028)
[2024-01-28 06:33] LABS: PTT 53.3 sec (22.9-36.1); Prothrombin Time 77.3 sec (12.0-14.7)
[2024-01-28 06:44] LABS: INR-International Normal Ratio 9.4
[2024-01-28 07:04] LABS: Influenza A by NAA Not Detected (NotDetected); Influenza B by NAA Not Detected (NotDetected); SARS-CoV-2 NAA Rapid Test Not Detected (NotDetected)
[2024-01-28] MEDS: Lactated Ringer's 1,000 ML IV SCH (08:18)
[2024-01-28 09:00] LABS: #Basophils Less than 0.03 10x3/uL (0.0-0.2); %Basophils 0.2 % (0.0-1.0); %Eosinophils 0.6 % (0.0-10.0); %Lymphocytes 9.8 % (21.0-51.0); %Monocytes 5.7 % (0.0-10.0); %Neutrophils 82.6 % (42.0-75.0); Critical Call w/ Read Back NUR.LG7; Hematocrit 15.3 % (42.0-52.0); Hemoglobin 5.1 g/dL (14.0-18.0); Mean Corpuscular HGB CONC 33.3 g/dL (32.0-36.0); Mean Corpuscular Hemoglobin 30.9 pg (27.0-31.0); Mean Corpuscular Volume 92.7 fL (78.0-98.0); Mean Platelet Volume 10.3 fL (7.4-10.4); Platelet Count 301 10x3/uL (130-400); RBC Distribution Width 16.3 % (11.5-14.5); Red Blood Cell (RBC) Count 1.65 mill/uL (4.70-6.10)
[2024-01-28 09:05] LABS: Critical Call Chem-Lactate NUR.LG7@0905; Lactic Acid 4.4 mmol/L (0.5-2.2)
[2024-01-28 09:07] LABS: Anion Gap 17 mmol/L (10-20); BUN (Urea Nitrogen) 79 mg/dL (8.4-25.7); Calc. Creatinine Clearance 15 mL/min (70-130); Carbon Dioxide 13 mmol/L (23-31); Chloride 109 mmol/L (98-107); Estimated GFR 21; Glucose 280 mg/dL (83-110); INR-International Normal Ratio 9.9; Potassium 4.2 mmol/L (3.5-5.1); Sodium 135 mmol/L (136-145)
[2024-01-28] MEDS: Vancomycin (BATCH) 1.25 GM in Premix 1 BAG IVPB SCH (09:10)
[2024-01-28] MEDS: [UNRECOGNIZED DRUG - OTHER] IV SCH (09:17)
[2024-01-28] MEDS: HUM PROTHROMBIN CPLX IV SCH (09:17)
[2024-01-28] MEDS: HUMAN PROTHROMBIN COMPLX IV SCH (09:17)
[2024-01-28] MEDS: Phytonadione 5 MG TAB PO SCH (09:18)
[2024-01-28] MEDS: Albumin 25% 25 GM (100 mL) BOT IVPB SCH (09:29)
[2024-01-28] MEDS: Pantoprazole 40 MG VIAL IVP SCH (09:29)
[2024-01-28] MEDS: Morphine 2 MG/ML VIAL SLOW IVP PRN (09:34)
[2024-01-28] MEDS ORDERED: [UNRECOGNIZED DRUG - OTHER] IVPB PRN (10:49)
[2024-01-28] MEDS ORDERED: VANCOMYCIN IVPB PRN (10:49)
[2024-01-28] MEDS: NOREPINEPHRINE 8 MG/250 ML-D5W 250 ML IVPB SCH (12:05)
[2024-01-28] MEDS: FLU VACC QS2023(65UP)/MF59C/PF 60 MCG/0.5 ML SYRINGE IM ONE (17:14)
[2024-01-28 18:29] LABS: Hematocrit 21.8 % (42.0-52.0); Hemoglobin 7.6 g/dL (14.0-18.0); Platelet Count 167 10x3/uL (130-400)
[2024-01-28] MEDS: Acetaminophen 325 MG TAB PO PRN (19:59)
[2024-01-28 23:01] LABS: Hematocrit 21.6 % (42.0-52.0); Hemoglobin 7.6 g/dL (14.0-18.0); Platelet Count 171 10x3/uL (130-400)
[2024-01-29] MEDS: Furosemide 40 MG (4 mL) VIAL ONE (04:19)
[2024-01-29] MEDS: Furosemide 40 MG (4 mL) VIAL SLOW IVP SCH (04:20)
[2024-01-29 04:48] LABS: #Basophils Less than 0.03 10x3/uL (0.0-0.2); %Basophils 0.3 % (0.0-1.0); %Eosinophils 1.6 % (0.0-10.0); %Lymphocytes 10.2 % (21.0-51.0); %Monocytes 4.9 % (0.0-10.0); %Neutrophils 81.5 % (42.0-75.0); Hematocrit 24.7 % (42.0-52.0); Hemoglobin 8.5 g/dL (14.0-18.0); Mean Corpuscular HGB CONC 34.4 g/dL (32.0-36.0); Mean Corpuscular Hemoglobin 30.9 pg (27.0-31.0); Mean Corpuscular Volume 89.8 fL (78.0-98.0); Mean Platelet Volume 9.9 fL (7.4-10.4); Platelet Count 219 10x3/uL (130-400); RBC Distribution Width 17.5 % (11.5-14.5); Red Blood Cell (RBC) Count 2.75 mill/uL (4.70-6.10)
[2024-01-29 05:01] LABS: INR-International Normal Ratio 1.6; PTT 34.7 sec (22.9-36.1); Prothrombin Time 18.6 sec (12.0-14.7)
[2024-01-29 05:06] LABS: Iron 36 ug/dL (65-175); Iron Binding Capacity, Total 176 mcg/dL (261-462)
[2024-01-29 05:09] LABS: Anion Gap 19 mmol/L (10-20); BUN (Urea Nitrogen) 58 mg/dL (8.4-25.7); Calc. Creatinine Clearance 19 mL/min (70-130); Calcium 9.6 mg/dL (7.8-10.44); Carbon Dioxide 18 mmol/L (23-31); Chloride 109 mmol/L (98-107); Estimated GFR 28; Glucose 103 mg/dL (83-110); Iron 37 ug/dL (65-175); Iron Binding Capacity, Total 175 mcg/dL (261-462); Potassium 3.5 mmol/L (3.5-5.1); Sodium 142 mmol/L (136-145)
[2024-01-29] MEDS: Cefepime 1 GM in Sodium Chloride 0.9% 100 ML IVPB SCH (06:07)
[2024-01-29] MEDS ORDERED: Vancomycin 1 GM in Premix 1 BAG IVPB SCH (09:00)
[2024-01-29] MEDS: NIFEdipine XL 90 MG ER.TAB PO SCH (09:21)
[2024-01-29] MEDS: Vancomycin HCl 500 MG in Sodium Chloride 0.9% 100 ML IV SCH (09:22)
[2024-01-29] MEDS: Methimazole 10 MG TAB PO SCH (09:34)
[2024-01-29] MEDS: Furosemide 40 MG TAB PO SCH (09:34)
[2024-01-29] MEDS ORDERED: Vancomycin Dose by Levels Sliding Scale (Wt <71) FS SCH (11:00)
[2024-01-29 12:54] VITALS: BMI 17.9
[2024-01-29] MEDS: Tamsulosin HCl 0.4 MG CAP PO SCH (13:16)
[2024-01-29] MEDS: Heparin 5,000 UNITS/ML VIAL SC SCH (16:07)
[2024-01-29] MEDS: Ferrous Sulfate 325 MG TAB PO SCH (16:10)
[2024-01-29] MEDS: Dronedarone HCl 400 MG TAB PO SCH (16:10)
[2024-01-29] MEDS: Atorvastatin Calcium 10 MG TAB PO SCH (22:03)
[2024-01-30 05:12] LABS: #Basophils Less than 0.03 10x3/uL (0.0-0.2); %Basophils 0.2 % (0.0-1.0); %Lymphocytes 6.1 % (21.0-51.0); %Monocytes 4.1 % (0.0-10.0); %Neutrophils 88.3 % (42.0-75.0); Hematocrit 27.1 % (42.0-52.0); Hemoglobin 9.3 g/dL (14.0-18.0); Mean Corpuscular HGB CONC 34.3 g/dL (32.0-36.0); Mean Corpuscular Hemoglobin 30.2 pg (27.0-31.0); Mean Platelet Volume 9.9 fL (7.4-10.4); Platelet Count 222 10x3/uL (130-400); RBC Distribution Width 17.4 % (11.5-14.5); Red Blood Cell (RBC) Count 3.08 mill/uL (4.70-6.10)
[2024-01-30 05:18] LABS: Anion Gap 12 mmol/L (10-20); BUN (Urea Nitrogen) 42 mg/dL (8.4-25.7); Calc. Creatinine Clearance 22 mL/min (70-130); Calcium 9.1 mg/dL (7.8-10.44); Carbon Dioxide 25 mmol/L (23-31); Chloride 106 mmol/L (98-107); Estimated GFR 34; Glucose 121 mg/dL (83-110); Potassium 2.7 mmol/L (3.5-5.1); Sodium 140 mmol/L (136-145)
[2024-01-30] MEDS ORDERED: Electrolyte Replacement Protocol 1 EACH FS PRN (06:03)
[2024-01-30] MEDS: Potassium Chloride 20 MEQ TAB PO SCH (06:46)
[2024-01-30] MEDS: Tamsulosin HCl 0.4 MG CAP PO SCH (08:03)
[2024-01-30 08:15] LABS: Magnesium 2.1 mg/dL (1.6-2.6)
[2024-01-30 08:18] LABS: INR-International Normal Ratio 1.4; Prothrombin Time 17.3 sec (12.0-14.7)
[2024-01-30 08:19] LABS: PTT 50.9 sec (22.9-36.1)
[2024-01-30] MEDS: Heparin 25,000 units/D5W 500 ML IV SCH (13:17)
[2024-01-30] MEDS: Furosemide 40 MG (4 mL) VIAL SLOW IVP SCH (13:17)
[2024-01-30] MEDS: Heparin 10,000 UNITS/ 10 ML VIAL SLOW IVP SCH (13:18)
[2024-01-30] MEDS: Warfarin Sodium 5 MG TAB PO SCH (17:01)
[2024-01-30 23:37] LABS: Potassium 4.3 mmol/L (3.5-5.1)
[2024-01-31 04:02] LABS: #Basophils Less than 0.03 10x3/uL (0.0-0.2); %Basophils 0.2 % (0.0-1.0); %Eosinophils 1.3 % (0.0-10.0); %Lymphocytes 8.9 % (21.0-51.0); %Monocytes 7.2 % (0.0-10.0); Hematocrit 23.1 % (42.0-52.0); Mean Corpuscular HGB CONC 34.6 g/dL (32.0-36.0); Mean Corpuscular Volume 89.5 fL (78.0-98.0); Mean Platelet Volume 9.5 fL (7.4-10.4); Platelet Count 203 10x3/uL (130-400); RBC Distribution Width 16.7 % (11.5-14.5); Red Blood Cell (RBC) Count 2.58 mill/uL (4.70-6.10)
[2024-01-31 04:13] LABS: INR-International Normal Ratio 1.4; Prothrombin Time 17.2 sec (12.0-14.7)
[2024-01-31 04:15] LABS: PTT 81.7 sec (22.9-36.1)
[2024-01-31 04:20] LABS: Anion Gap 12 mmol/L (10-20); BUN (Urea Nitrogen) 45 mg/dL (8.4-25.7); Calc. Creatinine Clearance 20 mL/min (70-130); Calcium 8.9 mg/dL (7.8-10.44); Carbon Dioxide 24 mmol/L (23-31); Chloride 105 mmol/L (98-107); Estimated GFR 31; Glucose 118 mg/dL (83-110); Sodium 137 mmol/L (136-145)
[2024-01-31 17:03] LABS: Ferritin 79.2 ng/mL (22-322)
[2024-02-01 04:12] LABS: #Basophils Less than 0.03 10x3/uL (0.0-0.2); %Basophils 0.4 % (0.0-1.0); %Eosinophils 3.9 % (0.0-10.0); %Lymphocytes 10.6 % (21.0-51.0); %Monocytes 8.8 % (0.0-10.0); %Neutrophils 75.9 % (42.0-75.0); Hematocrit 27.3 % (42.0-52.0); Hemoglobin 9.3 g/dL (14.0-18.0); Mean Corpuscular HGB CONC 34.1 g/dL (32.0-36.0); Mean Corpuscular Hemoglobin 30.4 pg (27.0-31.0); Mean Corpuscular Volume 89.2 fL (78.0-98.0); Mean Platelet Volume 9.6 fL (7.4-10.4); Platelet Count 273 10x3/uL (130-400); RBC Distribution Width 16.4 % (11.5-14.5); Red Blood Cell (RBC) Count 3.06 mill/uL (4.70-6.10)
[2024-02-01 04:21] LABS: INR-International Normal Ratio 1.7; Prothrombin Time 20.3 sec (12.0-14.7)
[2024-02-01 04:33] LABS: Anion Gap 17 mmol/L (10-20); BUN (Urea Nitrogen) 50 mg/dL (8.4-25.7); Calc. Creatinine Clearance 16 mL/min (70-130); Calcium 9.6 mg/dL (7.8-10.44); Carbon Dioxide 23 mmol/L (23-31); Chloride 101 mmol/L (98-107); Estimated GFR 23; Glucose 109 mg/dL (83-110); Potassium 3.9 mmol/L (3.5-5.1); Sodium 137 mmol/L (136-145)
[2024-02-01] MEDS: HYDROcodone/Acetaminophen 5/325 mg Tablet PO PRN (07:00)
[2024-02-02 05:40] LABS: #Basophils Less than 0.03 10x3/uL (0.0-0.2); %Basophils 0.5 % (0.0-1.0); %Eosinophils 6.8 % (0.0-10.0); %Lymphocytes 14.5 % (21.0-51.0); %Monocytes 11.3 % (0.0-10.0); %Neutrophils 66.4 % (42.0-75.0); Hematocrit 23.8 % (42.0-52.0); Mean Corpuscular HGB CONC 33.6 g/dL (32.0-36.0); Mean Corpuscular Hemoglobin 30.1 pg (27.0-31.0); Mean Corpuscular Volume 89.5 fL (78.0-98.0); Platelet Count 226 10x3/uL (130-400); RBC Distribution Width 15.9 % (11.5-14.5); Red Blood Cell (RBC) Count 2.66 mill/uL (4.70-6.10)
[2024-02-02 05:53] LABS: INR-International Normal Ratio 2.2; Prothrombin Time 24.6 sec (12.0-14.7)
[2024-02-02 06:59] LABS: Anion Gap 11 mmol/L (10-20); BUN (Urea Nitrogen) 48 mg/dL (8.4-25.7); Calc. Creatinine Clearance 19 mL/min (70-130); Calcium 8.9 mg/dL (7.8-10.44); Carbon Dioxide 25 mmol/L (23-31); Chloride 103 mmol/L (98-107); Estimated GFR 30; Glucose 91 mg/dL (83-110); Potassium 3.6 mmol/L (3.5-5.1); Sodium 135 mmol/L (136-145)
[2024-02-02] MEDS ORDERED: Warfarin Sodium 5 MG TAB PO SCH (07:45)
[2024-02-02] MEDS: Warfarin Sodium 3 MG TAB PO SCH (18:37)
[2024-02-03 04:43] LABS: INR-International Normal Ratio 2.5; Prothrombin Time 26.8 sec (12.0-14.7)
[2024-02-03 11:58] VITALS: TEMP 97.7
[2024-02-03 16:35] VITALS: BP 130/95
== END 2024-02-03 15:10 | disposition home or self-care (01) | DRG 811 ==
LOC: ERS 04:43 → CCU 07:50 → 2NO 01-31 04:52
PROVIDERS: ADMIT Student in an Organized Health Care Education/Training Program; ATTEND Internal Medicine
PROC: 30233K1 Transfusion of Nonautologous Frozen Plasma into Peripheral Vein, Percutaneous Approach (ICD-10-PCS; principal; 2024-01-28)
PROC: 30233N1 Transfusion of Nonautologous Red Blood Cells into Peripheral Vein, Percutaneous Approach (ICD-10-PCS; 2024-01-28)
DX: D62 Acute posthemorrhagic anemia (principal); J96.01 Acute respiratory failure with hypoxia; R57.1 Hypovolemic shock; R57.8 Other shock; I13.0 Hypertensive heart and chronic kidney disease with heart failure and stage 1 through stage 4 chronic kidney disease, or unspecified chronic kidney disease; N17.9 Acute kidney failure, unspecified; E44.0 Moderate protein-calorie malnutrition; D68.9 Coagulation defect, unspecified; Z68.1 Body mass index [BMI] 19.9 or less, adult; I25.10 Atherosclerotic heart disease of native coronary artery without angina pectoris; N18.30 Chronic kidney disease, stage 3 unspecified; I50.9 Heart failure, unspecified; E03.9 Hypothyroidism, unspecified; D50.9 Iron deficiency anemia, unspecified; I48.0 Paroxysmal atrial fibrillation; Z95.1 Presence of aortocoronary bypass graft; Z79.01 Long term (current) use of anticoagulants; Z95.2 Presence of prosthetic heart valve; Z79.51 Long term (current) use of inhaled steroids; Z79.899 Other long term (current) drug therapy
CPT/HCPCS: 36415; 36430; 70450; 71045; 74176; 80048; 80053; 80202; 82607; 82728; 83540; 83550; 83605; 83690; 83735; 83880; 84443; 84484; 85025; 85046; 85610; 85730; 86850; 86900; 86901; 87040; 87077; 87149; 93005; 94660; 96365; 96367; 96375; C9113; J0692; J1644; J1940; J2272; J3370; J3490; J7120; J7168; P9016; P9047; P9059